=== PATIENT | female | born 1985 | race Caucasian/White ===

== ENCOUNTER 2023-03-21 21:09 | Outpatient (REF) | payer OTHER, SELFPAY ==
[2023-03-24 14:09] LABS: Age Gdln ACOG Testing Note (.); HPV Aptima Negative (Negative); IGP, Aptima HPV, rfx 16/18,45 Note (.)
== END 2023-03-21 21:10 | disposition home or self-care (01) ==
LOC: LAB 21:09
PROVIDERS: Visit Provider Obstetrics & Gynecology
DX: Z01.419 Encounter for gynecological examination (general) (routine) without abnormal findings (principal)
CPT/HCPCS: 87624; G0145

== ENCOUNTER 2024-03-26 19:40 | Outpatient (REF) | payer OTHER, BC, SELFPAY | END 2024-03-26 19:41 | disposition home or self-care (01) | LOC: LAB 19:40 | PROVIDERS: Visit Provider Obstetrics & Gynecology | DX: Z01.419 Encounter for gynecological examination (general) (routine) without abnormal findings (principal) | CPT/HCPCS: 87624; 88175 ==

== ENCOUNTER 2025-04-01 12:07 | Outpatient (REF) | payer OTHER, BC, SELFPAY ==
--- OUTSIDE RECORDS SUMMARY | 2025-04-01 09:00 | XMS_ITS | Encounter Summary ---
Author Organization [facility] Address [address] [place] [address] Care Team Providers Care Journeyman Power Plant Operator Name Role Phone Unavailable Primary Care Provider Unavailabl e Reason for Visit * ReasonCommentsWell Women Visit Encounter Details DateTypeDepartmentCare Team (Latest Contact Info)Usirdoomxbq73/27/2025 9:00 AM EDTOffice Visit [facility] [address] [place] [phone] Juan Sevilla DO [address] [place], [facility]11 Well woman exam with routine gynecological exam; Vaginal dryness; Irregular menstrual cycle; Severe menstrual cramps Social History Tobacco UseTypesPacks/DayYears UsedDateSmoking Tobacco: FormerCigarettesAlcohol UseStandard Drinks/WeekCommentsNever0 (1 standard drink = 0.6 oz pure alcohol) caffeine: 1-2 cups per dayCommentsUnknownSex and Gender InformationValue Date RecordedSex Assigned at BirthNot on fileLegal RihOmzvlg14/15/2023 8:00 PM EDTGender IdentityNot on fileSexual OrientationNot on filedocumented as of this encounter Last Filed Vital Signs Vital SignReadingTime TakenCommentsBlood Bnldnufj772/7604/01/2025 9:07 AM EDT Pulse--Temperature--Respiratory Rate--Oxygen Saturation--Inhaled Oxygen Concentration--Kpdqid91.1 kg (121 lb 8 oz)04/01/2025 9:07 AM EDTHeight--Body Mass Index23.7310 9:59 AM EDTdocumented in this encounter Plan of Treatment DateTypeDepartmentCare Team (Latest Contact Info)Hprvikhbgxr71/02/2026 4:00 PM ESTProcedure Visit [facility] [address] [address] Juan Sevilla, [address] [place] [address] NameTypePriorityAssociated DiagnosesOrder ScheduleTHIN PREP TIS PAP AND HR HPV DNAPathology and CytologyRoutine Well woman exam with routine gynecological exam Ordered: 04/01/2025documented as of this encounter Visit Diagnoses Diagnosis Well woman exam with routine gynecological exam Routine gynecological examination Vaginal dryness Postmenopausal atrophic vaginitis Irregular menstrual cycle Severe menstrual cramps documented in this encounter
--- OUTSIDE RECORDS SUMMARY | 2025-04-01 12:13 | XMS_ITS | Encounter Summary ---
Author Organization [facility] Address [id number] [address] [place] [address] Care Team Providers Care Project Control Manager Name Role Phone Dipti Ling APRN-COMBINATION WINDOW INSTALLER Primary Care Provide r Reason for Visit * ReasonCommentsMed Refill Encounter Details DateTypeDepartmentCare Team (Latest Contact Info)Vjcqrcfsajy92/25/2025Refill [facility] [address] [place] [address] Dipti Ling APRN-CNP [address] [place] [address] Social History Tobacco UseTypesPacks/DayYears UsedDateSmoking Tobacco: FormerCigarettes0.56 1999 - 2005Smokeless Tobacco: NeverAlcohol UseStandard Drinks/Week CommentsNo0 (1 standard drink = 0.6 oz pure alcohol)Social Connection and Isolation PanelAnswerDate RecordedIn a typical week, how many times do you talk on the phone with family, friends, or neighbors?More than three times a week 08/05/2020How often do you get together with friends or relatives?Once a week 08/05/2020How often do you attend orthodoxy or yazidi services?More than 4 times per year1Do you belong to any clubs or organizations such as orthodoxy groups, unions, fraternal or athletic groups, or school groups?Yes08/05/2020How often do you attend meetings of the clubs or organizations you belong to?1 to 4 times per year08/05/2020re you , , , , never , or living with a partner?Gooqbjf4508/05/2020UDIT-CAnswerDate RecordedQ1: How often do you have a drink containing alcohol?Never08/05/2020verage Number of DrinksNot on file08/05/2020Q3: How often do you have six or more drinks on one occasion?Never08/05/2020Overall Financial Resource Strain (CARDIA)AnswerDate RecordedHow hard is it for you to pay for the very basics like food, housing, medical care, and heating?Not hard at all02/26/2025PHQ-2AnswerDate RecordedTotal Ypvwa112Finheber [facility] [place] of Occupational Health - Occupational Stress QuestionnaireAnswerDate RecordedDo you feel stress - tense, restless, nervous, or anxious, or unable to sleep at night because yourmind is troubled all the time - these days?To some fzrith1208/05/2020xercise Vital SignAnswerDate Recorded On average, how many days per week do you engage in moderate to strenuous exercise (like a brisk walk)?1 day08/05/2020On average, how many minutes do you engage in exercise at this level?30 min08/05/2020RAPARE - TransportationAnswer Date RecordedIn the past 12 months, has lack of transportation kept you from medical appointments or from getting medications?No02/26/2025In the past 12 months, has lack of transportation kept you from meetings, work, or from getting things needed for daily living?No02/26/2025Housing InstabilityAnswerDate RecordedAre you worried or concerned that in the next two months you may not have stable housing that you own, rent or stay in as a part of a household?No 02/26/2025hildcareAnswerDate RecordedDo problems getting early childhood services coordinator make it difficult for you to work or study?No08/05/2020mploymentAnswerDate RecordedDo you need help finding a local career center and/or a training program?No 08/05/2020Hunger ScreeningAnswerDate RecordedWithin the past 12 months we worried whether our food would run out before we got money to buy more.Never True03/04/2025Within the past 12 months the food we bought just didn't last and we didn't have money to get more.Never True03/04/2025Purpose - LifeAnswerDate RecordedI have a purpose and direction in my life.Strongly Agree08/05/2020 EducationAnswerDate RecordedWhat is the highest level of school you have completed or the highest degree you have received?Associate degree: academic wbxsdpj7308/05/2020CommentsNoSex and Gender InformationValueDate Recorded Sex Assigned at XiiawFnrpmr22/29/2019 2:56 PM EDTLegal RlmMhpaol53/06/2015 11:21 AM EDTGender OnmnmnnpCyxjlf40/29/2019 2:56 PM EDTSexual OrientationStraight 11/01/2018 2:56 PM EDTdocumented as of this encounter Plan of Treatment DateTypeDepartmentCare Team (Latest Contact Info)Syahmqysfvo86/28/2025 8:30 AM EDTOffice Visit [facility] [address] [place] [phone] Dipti Ling APRN-COMBINATION WINDOW INSTALLER [address] [place] [address] 03/05/2026 8:00 AM EDTOffice Visit [facility] [address] [place] [phone] Dipti Ling APRN-COMBINATION WINDOW INSTALLER [address] [place] [address] documented as of this encounter Visit Diagnoses Not on filedocumented in this encounter Additional Health Concerns AssessmentNoted TimePHQ-9 Depression Total Score: 9:00 AM EDTA Body Mass Index follow-up plan has been documented for the utfmsls9203/04/2025 9:26 AM EDTdocumented as of this encounter Care Teams Team MemberRelationshipSpecialtyStart DateEnd Date Dipti Ling APRN-CNP [address] [place] [address] PCP - GeneralFamily Medicine08/17/18documented as of this encounter
--- OUTSIDE RECORDS SUMMARY | 2025-04-01 12:13 | XMS_ITS | Clinical Summary ---
Author Organization [facility] Address [address] [place] [address] Phone Care Team Providers Care Welder Fitter Name Role Phone Dipti Ling NP Primary Care Provider Social History Tobacco UseTypesPacks/DayYears UsedDateSmoking Tobacco: Never Assessed CommentsUnknownSex and Gender InformationValueDate RecordedSex Assigned at Vqeefc4802/12/2020 8:49 AM CDTLegal GxqRxaixm90/05/2019 11:50 AM CDTGender DccnbjcfUgpkkk51/08/2020 8:49 AM CDTSexual KsboggpcqvaFapewlgm57/08/2020 8:49 AM CDT Last Filed Vital Signs Vital SignReadingTime TakenCommentsBlood Ybvoazqg023/7004 7:33 AM EDT Pulse--Temperature--Respiratory Rate--Oxygen Bobifydcfw483%09/24/2015 2:44 PM CDTInhaled Oxygen Concentration--Bwywca68.9 kg (121 lb)10/04/2023 7:33 AM EDT Qfquhm776.9 cm (5' 1 )10/04/2023 7:33 AM EDTBody Mass Index22.8610/04/2023 7:33 AM EDT Plan of Treatment Health MaintenanceDue DateLast DoneCommentsDTaP,Tdap,and Td Vaccines (1 - Tdap) 2003Hepatitis B Vaccines (1 of 3 - 19+ 3-dose series)2003COVID-19 Vaccine (1 - season)2025Influenza Vaccine (#1)/02/2021 Lipid Disorders Rrnrkpdlr09, 02/10/2023, 02/16/2022, Additional history existsHIB VaccinesAged OutNo longer eligible based on patient's age to complete this topicHepatitis A VaccinesAged OutNo longer eligible based on patient's age to complete this topicMeningococcal B Vaccine Aged OutNo longer eligible based on patient's age to complete this topic Meningococcal VaccineAged OutNo longer eligible based on patient's age to complete this topicPneumococcal Vaccine Pediatrics (0-5 Yrs) and At-Risk Patients (6-49Yrs)Aged OutNo longer eligible based on patient's age to complete this topic Procedures Procedure NamePriorityDate/TimeAssociated DiagnosisCommentsMPWR PANEL - BIOMETRIC JELOMicfklq41/30/2024 7:25 AM EDT Encounter for insurance examination from Last 3 Months or Most Recently Relevant to Health Maintenance Results * (ABNORMAL) MPWR panel - biometric only (10/04/2023 7:25 AM EDT)ComponentValue Ref RangeTest MethodAnalysis TimePerformed AtPathologist SignatureBASOABSOLMAN 290 - 200 cells/uLLAB [facility] (CLIA [id number])ABS THF6864 - 500 cells/uLLAB [facility] (CLIA [id number])LYMPHSABSMAN2,964472 - 3,900 cells/uLLAB [facility] (CLIA [id number])OZXZDPGSVKQT877922 - 950 cells/uL [facility] (CLIA [id number])NEUTRO COUNT2,3901,500 - 7,800 cells/uL [facility] (CLIA [id number])ALBUMIN4.83.6 - 5.1 g/dLLAB [facility] (CLIA [id number])A/G RATIO1.91.0 - 2.5 (calc)[facility] (CLIA [id number])ALK BOHF4460 - 125 U/LL[facility] (CLIA [id number])SGPT (ALT)146 - 29 U/LL[facility] (CLIA [id number])SGOT (AST)1610 - 30 U/L [facility] (CLIA [id number])BASOPHIL %0.6%[facility] (CLIA [id number])BILI DIRECT0.1< OR = 0.2 mg/dLLAB [facility] (CLIA [id number]) BILIRUBIN, SERUM, INDIRECT0.40.2 - 1.2 mg/dL (calc)[facility] (CLIA [id number])BILI TOTAL0.50.2 - 1.2 mg/dLLAB [facility] (CLIA [id number]) BUN/CREATSEE NOTE:6 - 22 (calc)[facility] (CLIA [id number])Comment: Not Reported: BUN and Creatinine are within ?? reference range. CALCIUM9.68.6 - 10.2 mg/dLLAB [facility] (CLIA [id number])MV14528 - 32 mmol/LLAB [facility] (CLIA [id number])WIVNVUET22996 - 110 mmol/LLAB [facility] (CLIA [id number])CHOL/HDL2.7<5.0 (calc)[facility] (CLIA [id number])WKXEFOMIOLI734<200 mg/dLLAB [facility] (CLIA [id number])VLDL17 <30 mg/dL (calc)[facility] (CLIA [id number])CREATININE0.690.50 - 0.97 mg/dLLAB [facility] (CLIA [id number])EOSINOPHIL %1.0%[facility] (CLIA [id number])BWU737 - 50 U/LLAB [facility] (CLIA [id number])GLOBULIN2.5 1.9 - 3.7 g/dL (calc)[facility] (CLIA [id number])QOTXPDF137(H)65 - 99 mg/dLLAB [facility] (CLIA [id number])Comment: Fasting reference interval For someone without known diabetes, a glucose value between 100 and 125 mg/dL is consistent with prediabetes and should be confirmed with a follow-up test. HDL67> OR = 50 mg/dLLAB [facility] (CLIA [id number])HCT40.835.0 - 45.0 %[facility] (CLIA [id number])HGB13.411.7 - 15.5 g/dLLAB [facility] (CLIA [id number])YRPF0827 - 190 mcg/dLLAB [facility] (CLIA [id number]) LACTATE WWNJCIWSPECMU166902 - 200 U/LL[facility] (CLIA [id number])LDL (CALCULATED)98mg/dL (calc)[facility] (CLIA [id number])Comment: Reference range: <100 Desirable range <100 mg/dL for primary prevention; <70 mg/dL for patients with CHD or diabetic patients with > or = 2 CHD risk factors. LDL-C is now calculated using the Jorge-Morales calculation, which is a validated novel method providing better accuracy than the Friedewald equation in the estimation of LDL-C. Jorge SS et al. NIKITA. 2013;310(19): 6442-8327 (http://education.LiquidPiston/faq/RXD010) LYMPHS %43.4%[facility] (CLIA [id number])MCH29.627.0 - 33.0 pgLAB [facility] (CLIA [id number])MCHC RBC32.832.0 - 36.0 g/dLLAB [facility] (CLIA [id number])MCV90.180.0 - 100.0 fLLAB [facility] (CLIA [id number])MONOCYTE % 5.2%[facility] (CLIA [id number])MPV9.37.5 - 12.5 fLLAB [facility] (CLIA [id number])XYCAZTPHTTO87.8%[facility] (CLIA [id number]) CHOLESTEROL, NON-HDL, GZSDN569<130 mg/dL (calc)[facility] (CLIA [id number])Comment: For patients with diabetes plus 1 major ASCVD risk factor, treating to a non-HDL-C goal of <100 mg/dL (LDL-C of <70 mg/dL) is considered a therapeutic option. PHOS P/S4.12.5 - 4.5 mg/dLLAB [facility] (CLIA [id number])LZTVAIQIE509127 - 400 Thousand/uLLAB [facility] (CLIA [id number])POTASSIUM3.73.5 - 5.3 mmol/L [facility] (CLIA [id number])PROTEIN, TOT7.36.1 - 8.1 g/dLLAB [facility] (CLIA [id number])RDW12.811.0 - 15.0 %[facility] (CLIA [id number]) RED BLOOD CELL4.533.80 - 5.10 Million/uLLAB [facility] (CLIA [id number]) XTYNRU914471 - 146 mmol/LLAB [facility] (CLIA [id number])ENEGEPJYYKHX63<150 mg/dLLAB [facility] (CLIA [id number])TRY891 - 25 mg/dLLAB [facility] (CLIA [id number])URIC ACID4.12.5 - 7.0 mg/dLLAB [facility] (CLIA [id number])Comment: Therapeutic target for gout patients: <6.0 mg/dL Fasting? YES WBC COUNT4.83.8 - 10.8 Thousand/uLLAB [facility] (CLIA [id number])KMUQ768> OR = 60 mL/min/1.59k6KBL [facility] (CLIA [id number])Specimen (Source) Anatomical Location / LateralityCollection Method / VolumeCollection Time Received Time10/04/2023 7:25 AM EDT Narrative Authorizing ProviderResult TypeResult StatusRuWashington Rural Health Collaborative BLOOD ORDERABLES Edited Result - FinalPerforming OrganizationAddressCity/State/ZIP CodePhone Number LAB [facility] (CLIA [id number]) [address] [facility] [place] [address], [place] from Last 3 Months or Most Recently Relevant to Health Maintenance Care Teams Team MemberRelationshipSpecialtyStart DateEnd Date Dipti Ling NP PCP - GeneralPrimary Care02/16/22
--- OUTSIDE RECORDS SUMMARY | 2025-04-01 12:13 | XMS_ITS | Encounter Summary ---
Author Organization [facility] tem Address [id number] [address] [place] [address] Care Team Providers Care Braddisher Name Role Phone Dipti Ling APRN-DAG COATER Primary Care Provide r Reason for Visit * ReasonCommentsMed Change Request Encounter Details DateTypeDepartmentCare Team (Latest Contact Info)Akntylsmoee74/23/2025Refill [facility] [address] [place] [address] Dipti Ling APRN-CNP [address] [place] [address] Social History Tobacco UseTypesPacks/DayYears UsedDateSmoking [...] a week 08/05/2020How often do you attend presybeterian or gnosticism services?More than 4 times per year1Do you belong to any clubs or organizations such as presybeterian groups, unions, fraternal or athletic groups, or school groups?Yes08/05/2020How often do you attend meetings of the clubs or organizations you belong to?1 to 4 times per year08/05/2020re you , , , , never , or living with a partner?Kvqxxkb5708/05/2020UDIT-CAnswerDate RecordedQ1: How often do you have a drink containing alcohol?Never08/05/2020verage Number of DrinksNot on file08/05/2020Q3: How often do you have six or more drinks on one occasion?Never08/05/2020Overall Financial Resource Strain (CARDIA)AnswerDate RecordedHow hard is it for you to pay for the very basics like food, housing, medical care, and heating?Not hard at all02/26/2025PHQ-2AnswerDate RecordedTotal Mvdqg481Finsteward health care system [place] of Occupational Health - Occupational Stress QuestionnaireAnswerDate RecordedDo you feel stress - tense, restless, nervous, or anxious, or unable to sleep at night because yourmind is troubled all the time - these days?To some esufny9808/05/2020xercise Vital SignAnswerDate Recorded On average, how many [...] of a household?No 02/26/2025hildcareAnswerDate RecordedDo problems getting childcare attendant make it difficult for you to work [...] highest degree you have received?Associate degree: academic dgctsjr3408/05/2020CommentsNoSex and Gender InformationValueDate Recorded Sex Assigned at VshdhClhozn92/29/2019 2:56 PM EDTLegal QxiEnctbh79/06/2015 11:21 AM EDTGender InlmcxfjJiuoeh62/29/2019 2:56 PM EDTSexual OrientationStraight 11/01/2018 2:56 PM EDTdocumented as of this encounter Plan of Treatment DateTypeDepartmentCare Team (Latest Contact Info)Dannxkdkbdx49/28/2025 8:30 AM EDTOffice Visit [facility] [address] [place] [phone] Dipti Ling APRN-DAG COATER [address] [place] [address] 03/05/2026 8:00 AM EDTOffice Visit [facility] [address] [place] [phone] Dipti Ling APRN-DAG COATER [address] [place] [address] documented as of this encounter Visit Diagnoses Not on filedocumented in this encounter Additional Health Concerns AssessmentNoted TimePHQ-9 Depression Total Score: 9:00 AM EDTA Body Mass Index follow-up plan has been documented for the otkpmvy7003/04/2025 9:26 AM EDTdocumented as of this encounter Care Teams Team MemberRelationshipSpecialtyStart DateEnd Date Dipti Ling APRN-CNP [address] [place] [address] PCP - GeneralFamily Medicine08/17/18documented as of this encounter
--- OUTSIDE RECORDS SUMMARY | 2025-04-01 12:13 | XMS_ITS | Clinical Summary ---
Author Organization [facility] Address [address] [place] [address], [address] [place] [id number] Care Team Providers Care National Sales Representative Name Role Phone Unavailable Primary Care Provider Unavailabl e Social History Tobacco UseTypesPacks/DayYears UsedDateSmoking Tobacco: Never Assessed CommentsUnknownSex and Gender InformationValueDate RecordedSex Assigned at Not on fileLegal WpjKcfqap66/10/2013 3:22 PM ESTGender IdentityNot on fileSexual OrientationNot on file Plan of Treatment Not on file
--- OUTSIDE RECORDS SUMMARY | 2025-04-01 12:13 | XMS_ITS | Encounter Summary ---
Author Organization [facility] Address [address] [facility] [place] [address] Care Team Providers Care Repairer Controller Tester Name Role Phone Unavailable Primary Care Provider Unavailabl e Encounter Details DateTypeDepartmentCare Team (Latest Contact Info)Gjwuwifdrwf62/27/2025amboo flowsheet [facility] [address] [place] [address] [place] [address] Juan Sevilla DO [address] [place] [address] Dr [place] [place], [place] [address] Social History Tobacco UseTypesPacks/DayYears UsedDateSmoking Tobacco: FormerCigarettesAlcohol UseStandard Drinks/WeekCommentsNever0 (1 standard drink = 0.6 oz pure alcohol) caffeine: 1-2 cups per dayCommentsUnknownSex and Gender InformationValue Date RecordedSex Assigned at BirthNot on fileLegal PgaNssppa51/15/2023 8:00 PM EDTGender IdentityNot on fileSexual OrientationNot on filedocumented as of this encounter Plan of Treatment DateTypeDepartmentCare Team (Latest Contact Info)Bnekdkhgodr93/02/2026 4:00 PM ESTProcedure Visit [facility] [address] [place] [address] Juan Sevilla DO [address] [place] [address] Dr Ry[address] Lucia, [facility] documented as of this encounter Visit Diagnoses Not on filedocumented in this encounter
--- OUTSIDE RECORDS SUMMARY | 2025-04-01 12:13 | XMS_ITS | Clinical Summary ---
Author Organization [facility] tem Address [id number] [address] [place] [address] Care Team Providers Care Housekeeping Room Attendant Name Role Phone Dipti Ling Primary Care Provide r Allergies No known active allergies Medications * This document contains information received from the source organization and may not represent a complete record from that organization. MedicationSigDispense QuantityRefillsLast FilledStart DateEnd DateStatus sertraline (ZOLOFT) 50 mg tablet TAKE 1 TABLET BY MOUTH EVERY DAY 90 tablet 5Active sertraline (ZOLOFT) 25 mg tablet Take 1 tablet (25 mg total) by mouth in the morning. 30 tablet 5Active azithromycin (ZITHROMAX) 250 mg tablet Take 2 tablets the first day, then 1 tablet daily for 4 days. 6 tablet 5003/02/2025Expired Active Problems ProblemNoted DateDiagnosed DatePosttraumatic stress /09/2017 Generalized anxiety xrijphfj11/09/2017Major depressive disorder, recurrent episode, mild01/12/2017 Encounters DateTypeDepartmentCare KmuqUxdqbhsoriz19/25/2025[facility]ill [facility] [address] [place] [address] Dipti Ling APRN-CNP 03/28/2025Refill [facility] [address] [place] [address] Dipti Ling APRN-CNP 03/04/2025 9:00 AM EDTOffice Visit [facility] [address] [place] [phone] Dipti Ling APRN-CNP Wellness examination (Primary Dx); Major depressive disorder, recurrent episode, mild; Generalized anxiety disorder; Posttraumatic stress sxjgqlxy57/28/9775Veriqy28/23/2025 1:00 PM EDTOffice Visit [facility] [address] [place] [phone] Dipti Ling APRN-CNP Acute sinusitis, recurrence not specified, unspecified location (Primary Dx) 02/26/20253447Tfsdet99/25/2025 10:00 AM EDTOffice Visit [facility] [place] [phone] Dipti Ling APRN-CNP Acute sinusitis, recurrence not specified, unspecified location (Primary Dx) 01/28/20257008Yxcegy81/16/2025[facility] [address] [place], [place] [address] [phone] Dipti Ling APRN-CNP 01/02/2025 2:30 PM EDTOffice Visit [facility] [address] [place], [place] [address] [place] [phone] Dipti Ling APRN-CNP Herpes zoster without complication (Primary Dx)01/02/2025Travelfrom Last 3 Months Immunizations ImmunizationAdministration DatesNext DueInfluenza, Injectable, quadrivalent (PF) 08/12/2020 Family History Medical HistoryRelationNameCommentsAnxiety disorderBrotherBrandonBipolar disorderBrotherBrandonDepressionBrotherBrandonAlcohol abuseFatherMikeAnxiety disorderFatherMikeDepressionFatherMikeDrug abuseFatherMikeHeart diseaseFather MikeCervical cancerMaternal AuntCarolOvarian cancerMaternal AuntCarolMy mother is adopted. We dont know much about health historyAnxiety disorderMotherSue DepressionMotherSueHypertensionMotherSueHeart diseasePaternal GrandfatherNorbert Breast cancerNeg HxRelationNameStatusCommentsBrotherBrandonFatherMikeAlive Maternal AuntCarolDeceasedMotherSueAlivePaternal GrandfatherNorbertDeceased Social History Tobacco UseTypesPacks/DayYears UsedDateSmoking Tobacco: FormerCigarettes0.56 1999 - 2005Smokeless Tobacco: Never Tobacco Cessation:Counseling Given: Not Answered Alcohol UseStandard Drinks/WeekCommentsNo0 (1 standard drink = 0.6 oz pure alcohol)Social Connection and Isolation PanelAnswerDate RecordedIn a typical week, how many times do you talk on the phone with family, friends, or neighbors?More than three times a week08/05/2020How often do you get together with friends or relatives?Once a week08/05/2020How often do you attend sikh or cheondoism services?More than 4 times per year08/05/2020o you belong to any clubs or organizations such as sikh groups, unions, fraternal or athletic clara ups, or school groups?Yes08/05/2020How often do you attend meetings of the clubs or organizations you belong to?1 to 4 times per year08/05/2020re you , , , , never , or living with a partner? 08/05/2020UDIT-CAnswerDate RecordedQ1: How often do you have a drink containing alcohol?Never08/05/2020verage Number of DrinksNot on file08/05/2020Q3: How often do you have six or more drinks on one occasion?Never08/05/2020Overall Financial Resource Strain (CARDIA)AnswerDate RecordedHow hard is it for you to pay for the very basics like food, housing, medical care, and heating?Not hard at all02/26/2025PHQ-2AnswerDate RecordedTotal Ylzxw027Finlifepoint hospitals [place] [facility] Occupational [facility] - Occupational Stress QuestionnaireAnswerDate RecordedDo you feel stress - tense, restless, nervous, or anxious, or unable to sleep at night because yourmind is troubled all the time - these days?To some extent 08/05/2020xercise Vital SignAnswerDate RecordedOn average, how many days per week do you engage in moderate to strenuous exercise (like a brisk walk)?1 day 08/05/2020On average, how many minutes do you engage in exercise at this level? 30 min08/05/2020RAPARE - TransportationAnswerDate RecordedIn the past 12 months, has lack [...] stay in as a part of a household?No02/26/2025hildcareAnswer Date RecordedDo problems getting child and family services specialist make it difficult for you to work or study?No08/05/2020mploymentAnswerDate RecordedDo you need help finding a local career center and/or a training program?No08/05/2020Hunger ScreeningAnswerDate RecordedWithin the past 12 months we worried whether our food would run out before we got money to buy more.Never True03/04/2025Within the past 12 months the food we bought just didn't last and we didn't have money to get more.Never True03/04/2025Purpose - LifeAnswerDate RecordedI have a purpose and direction in my life.Strongly Agree08/05/2020ducationAnswerDate RecordedWhat is the highest level of school you have completed or the highest degree you have received? Associate degree: academic ocjoddo0408/05/2020CommentsNoSex and Gender InformationValueDate RecordedSex Assigned at TpiqgHkamia58/29/2019 2:56 PM EDT Legal LgcJgcyzs44/06/2015 11:21 AM EDTGender QfmqrysnTixxdx41/29/2019 2:56 PM EDTSexual BvqpkbybwktIfjvkgre30/29/2019 2:56 PM EDT Last Filed Vital Signs Vital SignReadingTime TakenCommentsBlood Bnzqvsps674/6809 9:03 AM EDT Jmfnt627303/04/2025 9:03 AM SEPWsxdzcrwqit29.2 ??C (97.2 ??F)03/04/2025 9:03 AM EDTRespiratory Kpgt768603/04/2025 9:03 AM EDTOxygen Vvriwwxlcf45%03/04/2025 9:03 AM EDTInhaled Oxygen Concentration--Izsaya31.8 kg (123 lb)03/04/2025 9:03 AM EDT Qctlea666.4 cm (5')03/04/2025 9:03 AM EDTBody Mass Index24.02003/04/2025 9:03 AM EDT Plan of Treatment DateTypeDepartmentCare Team (Latest Contact Info)Zigchruubuq69/28/2025 8:30 AM EDTOffice Visit [facility] [address] [place] [phone] Dipti Ling, [employer]-DRUM DRIER OPERATOR [address] [place] [address] 03/05/2026 8:00 AM EDTOffice Visit [facility] [address] [place] [phone] Dipti Ling, [employer]-DRUM DRIER OPERATOR [address] [place] [address] Health MaintenanceDue DateLast DoneCommentsDTaP,Tdap and Td Vaccines (1 - Tdap) 2003Influenza Vwaukbs36, 03/07/2023, 03/24/2022, Additional history existsAdult BMI Lsojvpzhe94/Depression Qplafhfhx22Tobacco Gcvblezpy53Pap Smear Medical Devices Not on file Insurance * Guarantor: Maria Antonia Fitzpatrick TypeRelation to PatientDate of BirthPhone Billing AddressPersonal/VhgtczIgia02/11/1986 [address] [address] Care Teams Team MemberRelationshipSpecialtyStart DateEnd Date Dipti Ling APRN-DRUM DRIER OPERATOR [address] [place] [address] PCP - GeneralFamily Medicine08/17/18
--- OUTSIDE RECORDS SUMMARY | 2025-04-01 12:13 | XMS_ITS | Encounter Summary ---
Author Organization [facility] Address [address] [place] [address] Care Team Providers Care Brim Plater Name Role Phone Unavailable Primary Care Provider Unavailabl e Encounter Details DateTypeDepartmentCare Team (Latest Contact Info)Hxtbogckplu86/20/2025Travel Social History Tobacco UseTypesPacks/DayYears UsedDateSmoking Tobacco: FormerCigarettesAlcohol UseStandard Drinks/WeekCommentsNever0 (1 standard drink = 0.6 oz pure alcohol) caffeine: 1-2 cups per dayCommentsUnknownSex and Gender InformationValue Date RecordedSex Assigned at BirthNot on fileLegal LyrIsvgqm89/15/2023 8:00 PM EDTGender IdentityNot on fileSexual OrientationNot on filedocumented as of this encounter Plan of Treatment DateTypeDepartmentCare Team (Latest Contact Info)Bfvvrzyqqpr47/02/2026 4:00 PM ESTProcedure Visit [facility] [address] [place] [phone] Juan Sevilla DO [address] [place], [facility]11 documented as of this encounter Visit Diagnoses Not on filedocumented in this encounter
--- OUTSIDE RECORDS SUMMARY | 2025-04-01 12:13 | XMS_ITS | Clinical Summary ---
Author Organization [facility] Address [address] [place] [address] Care Team Providers Care Form Coverer Name Role Phone Unavailable Primary Care Provider Unavailabl e Allergies Active AllergyReactionsCriticalityNoted DateCommentsApple (Diagnostic)RashLow 03/17/2023ee ZqthxVzjwTno72/12/2023 Medications MedicationSigDispense QuantityRefillsLast FilledStart DateEnd DateStatus sertraline (Zoloft) 50 MG tablet Take 1 tablet by mouth in the morning.01/24/2023ctive Encounters DateTypeDepartmentCare ZexkJqnyyuzvuxm73/27/2025 9:00 AM EDTOffice Visit [facility] [address] [place] [phone] Juan Sevilla, Well woman exam with routine gynecological exam; Vaginal dryness; Irregular menstrual cycle; Severe menstrual ylpegf53amboo flowsheet [facility] [address] [place] [address] Juan Sevilla DO 03/25/2025Travelfrom Last 3 Months Family History Medical HistoryRelationNameCommentsCancerBrotherHypertensionBrotherHeart attack FatherPossible diabetesMotherRelationNameStatusCommentsBrotherFatherAliveMother Alive Social History Tobacco UseTypesPacks/DayYears UsedDateSmoking Tobacco: FormerCigarettes Tobacco Cessation:Counseling Given: Not Answered Alcohol UseStandard Drinks/WeekCommentsNever0 (1 standard drink = 0.6 oz pure alcohol)caffeine: 1-2 cups per dayCommentsUnknownSex and Gender InformationValueDate RecordedSex Assigned at BirthNot on fileLegal SexFemale 08/18/2022 8:00 PM EDTGender IdentityNot on fileSexual OrientationNot on file Last Filed Vital Signs Vital SignReadingTime TakenCommentsBlood Utttdifr165/7604/01/2025 9:07 AM EDT Pulse--Temperature--Respiratory Rate--Oxygen Saturation--Inhaled Oxygen Concentration--Pukdzx46.1 kg (121 lb 8 oz)04/01/2025 9:07 AM VDVJybgbv712.4 cm (5')03/21/2023 9:59 AM EDTBody Mass Index23.7303/21/2023 9:59 AM EDT Plan of Treatment DateTypeDepartmentCare Team (Latest Contact Info)Nbqxgoadjti97/02/2026 4:00 PM ESTProcedure Visit [facility] [address] [place] [address] Juan Sevilla DO [address] [place] [place], [place] [phone] Insurance
--- OUTSIDE RECORDS SUMMARY | 2025-04-01 12:53 | XMS_ITS | CCD ---
Author Organization [facility] Care Team Providers Care Pricing Supervisor Name Role Phone Gatito Smiley Primary Care Physician Unavail able Gatito Smiley Unavailable Unavailable DR RICARDO SEVILLA Admitting Unavailable ROEL, DR SILVA Attending Unavailable ROEL, DR SILVA Consulting Unavailable Unavailable Primary Care Provider Unavailabl RICARDO Sosa Attending Unavailable Schlachter LINK WIRE FABRIC MACHINE TENDER-ROD POINTER, Rosmery Primary Care Provide r ROSMERY LING Referring Unavailable SCHLACHTER, ROSMERY Primary Care Unavailable Schlachter LINK WIRE FABRIC MACHINE TENDER-ROD POINTER, Rosmery Primary Care Provide r ROSMERY LING Attending Unavailable SCHLACHTER, ROSMERY Referring Unavailable SCHLACHTER, ROSMERY Primary Care Unavailable SCHLACHTER, ROSMERY Attending Unavailable SCHLACHTER, ROSMERY Referring Unavailable SCHLACHTER, ROSMERY Primary Care Unavailable SCHLACHTER, ROSMERY Attending Unavailable SCHLACHTER, ROSMERY Referring Unavailable SCHLACHTER, ROSMERY Primary Care Unavailable SCHLACHTER, ROSMERY Attending Unavailable SCHLACHTER, ROSMERY Referring Unavailable SCHLACHTER, ROSMERY Primary Care Unavailable SCHLACHTER, ROSMERY Attending Unavailable SCHLACHTER, ROSMERY Referring Unavailable SCHLACHTER, ROSMERY Primary Care Unavailable Allergies Allergy ClassificationReported Allergen(s)Allergy TypeDate of OnsetReaction(s) Facility (5 sources)Apple extractDrug Epaprsg18-58-1275SfknPDDY [facility] Work Phone: (5 sources)Honey bee venomAllergy to efoevnclh18-68-5143VlusVWVQ [facility] Medications Current Medications MedicationDrug Class(es)DatesSig (Normalized)Sig (Original)azithromycin 250 mg oral tablet (5 sources)Macrolide AntimicrobialStart: 02-26-2025 End: 67-88-2293euaeazyeissu (ZITHROMAX) 250 mg tablet Take 2 tablets the first day, then 1 tablet daily for 4 days. 6 tablet 02/26/2025 03/02/2025 ActiveStart: 01-28-2025 End: 23-33-2582qposorbiupbq (ZITHROMAX) 250 mg tablet Take 2 tablets the first day, then 1 tablet daily for 4 days. 6 tablet 01/28/2025 02/01/2025 ActiveStart: 07-12-2024 End: 84-06-7580lpyi 1 tablet by mouth in the morning, then take 2 tablets by mouth once daily, then take 1 tablet by mouth once dailyazithromycin (ZITHROMAX) 250 mg tablet Take 1 tablet (250 mg total) by mouth in the morning for 5 days. Take 2 tablets the first day, then 1 tablet daily for 4 days.. 6 tablet 07/12/2024 07/17/2024 ActiveStart: 10-12-2023 End: 71-37-6320qegz 1 tablet by mouth in the morning, then take 2 tablets by mouth once daily, then take 1 tablet by mouth once dailyazithromycin (ZITHROMAX) 250 mg tablet Take 1 tablet (250 mg total) by mouth in the morning for 5 days. Take 2 tablets the first day, then 1 tablet daily for 4 days.. 6 tablet 10/12/2023 10/17/2023 Activesertraline 25 mg oral tablet (20 sources)Serotonin Reuptake InhibitorStart: 93-65-4827vdep 1 tablet by mouth in the morningsertraline (ZOLOFT) 25 mg tablet Take 1 tablet (25 mg total) by mouth in the morning. 30 tablet 03/04/2025 ActiveStart: 01-24-2023 End: 43-48-1336xnap 1 tablet by mouth in the morningsertraline (Zoloft) 50 MG tablet Take 1 tablet by mouth in the morning. 01/24/2023 Activetake 1 tablet by mouth once dailyZoloft 25 mg oral tablet take 1 tablet (25 mg) by oral route once dailyvalACYclovir 1000 mg oral tablet (1 source)Herpesvirus Nucleoside Analog DNA Polymerase Inhibitor, Herpes Simplex Virus Nucleoside Analog DNA Polymerase Inhibitor, Herpes Zoster Virus Nucleoside Analog DNA Polymerase InhibitorStart: 01-02-2025 End: 79-23-4669brtb 1 tablet by mouth in the morning, then take 1 tablet by mouth at bedtimevalACYclovir (VALTREX) 1000 mg tablet Take 1 tablet (1,000 mg total) by mouth in the morning and 1 tablet (1,000 mg total) before bedtime. Do all this for 7 days. 14 tablet 01/02/2025 01/09/2025 Active Completed/Discontinued Medications MedicationDrug Class(es)DatesSig (Normalized)Sig (Original)acetaminophen 500 mg oral tablet (3 sources)Start: 11-09-2022 End: 27-44-6674icnt 1 tablet by mouth every six hoursacetaminophen (TYLENOL EXTRA STRENGTH) 500 mg tablet Take 1 tablet (500 mg total) by mouth every 6 ( six) hours. 30 tablet 0 11/09/2022 08/24/2023 Discontinuedibuprofen 600 mg oral tablet (3 sources)Nonsteroidal Anti-inflammatory DrugStart: 11-09-2022 End: 39-36-0868jcwa 1 tablet by mouth every eight hoursibuprofen (MOTRIN) 600 mg tablet Take 1 tablet (600 mg total) by mouth every 8 (eight) hours. 45 tablet 1 11/09/2022 08/24/2023 Discontinued Problems Active Problems Problem ClassificationProblemDateDocumented DateEpisodic/ChronicAnxiety disorders (20 sources)Posttraumatic stress disorder; Translations: [Post-traumatic stress disorder, unspecified]Onset: 750947-12-4892XoyijnsJskoalwii hypertension (1 source)Essential (primary) hypertensionChronicImmunizations and screening for infectious disease (1 source)Encounter for screening for human papillomavirus (HPV); Translations: [ENC SCREENING HUMAN PAPILLOMAVIRUS]Onset: 27-89-4978HmnhyybqGgyu disorders (18 sources)Recurrent major depressive episodes, mild ; Translations: [Major depressive disorder, recurrent, mild]Onset: 149047-87-7339YtwidnwAkawmrirf of unspecified nature or uncertain behavior (2 sources)Neoplasm of uncertain behavior of skinOnset: 18-74-3521BuolbzpoVhpag lower respiratory disease (1 source)CoughOnset: 68-12-8968EgxvknkeDaouz screening for suspected conditions (not mental disorders or infectious disease) (7 sources)Encounter for screening for malignant neoplasm of cervix; Translations: [Patient encounter status]Onset: 51-15-9962GqnsouvmEfvrz skin disorders (2 sources)Night sweats; Translations: [Generalized hyperhidrosis]03-26-2024 EpisodicUnclassified (1 source)Annual ExamOnset: 04-99-4677Vpmmlbiafcyy (1 source)RashOnset: 50-88-6740Fizgynooemug (1 source)EaracheOnset: 34-00-6838Fjrbt infection (3 sources)Disease caused by 2019-nCoV; Translations: [COVID-19]Onset: 400905-54-8495Jchqptbr Past or Other Problems Problem ClassificationProblemDateDocumented DateEpisodic/ChronicMood disorders (13 sources)Mood disordersOnset: 07-12-2024 Resolved: Other and unspecified benign neoplasm (1 source)Melanocytic nevi, unspecifiedOnset: 38-27-1897KnjpskliNcxnt upper respiratory disease (1 source)Pain in throatOnset: 32-02-6684KszgipwhVflyw upper respiratory disease (1 source)Nasal congestionOnset: 63-53-9533DmcizzpgTqxwt upper respiratory infections (5 sources)Acute sinusitis; Translations: [Acute sinusitis, unspecified]Onset: 433379-10-2409FsyhhrssAtvjykzevnhw (13 sources)Onset: 07-12-2024 Resolved: Results Test NameValueInterpretationReference RangeFacilityGlucose Glucometer (BldC) [Mass/Vol]on 45-18-6230koibx glucose (non-fasting)Invalid Interpretation Code <140AstemDuke HealthGlucose [Mass/Vol]108 mg/dLInvalid Interpretation Skgg88-80WwotvyDuke Healthlipid panel, bloodon 34-78-6889Ikytxiheuhp [Mass/Vol]181 mg/dLInvalid Interpretation Code<200Astemo [facility] Health CenterCholesterol in HDL [Mass/Vol]57 mg/dLInvalid Interpretation Code>50Astemo [facility] Health CenterCholesterol in LDL [Mass/Vol]104 mg/dL Invalid Interpretation Code<100AstUNC Health RockinghamTC/HDL ratio3.2 Invalid Interpretation Code<4.5Astemo Santa Ana Health CenterTriglyceride [Mass/Vol]101 mg/dLInvalid Interpretation Code<150AstemDuke Health MAMM SCREENING BILATERAL W CADon 45-26-3612WWFN SCREENING BILATERAL W CADMAMM SCREENING BILATERAL W CAD MARIA ANTONIA PALMER 1985 [id number] EXAM: MAMM SCREENING BILATERAL W CAD, 09/13/2024 9:18 AM CLINICAL INDICATIONS: Screening, Encounter for mammogram to establish baseline mammogram COMPARISON: No prior studies currently available for comparison. TECHNIQUE: Bilateral digital tomosynthesis MLO and CC views of the breasts were obtained, with creation of synthetic 2D views. Computer aided detection was utilized. FINDINGS: The breasts are extremely dense, which lowers the sensitivity of mammography. There are no suspicious masses, calcifications, or areas of architectural distortion. IMPRESSION: No mammographic evidence of malignancy. BI-RADS: BI-RADS 1 - Negative RECOMMENDATION: Routine screening mammogram in 1 year. RISK ASSESSMENT: TC Lifetime risk: 16%. The patient's reported personal and family medical history was used calculate their Tyrer-Cuzick lifetime risk of malignancy. Scores less than 20% are not considered high risk per ACR guidelines and patient should continue with the above recommendation. Additionally, this patient's reported personal and/or family history of cancer indicates they may benefit from a genetic counseling consultation and possible genetic testing. If patient has not already completed this evaluation, please consider placing a referral to [facility] via Squrl or . For questions regarding this, please call [phone]. The patient was offered information on genetic counseling at the time of exam. Finalized by Adin Sanabria MD on 09/13/2024 2:56 PM 1 d MAMM 1 YRNormalProMedica Community Hospital Of San BernardinoIGP,APTIMA HPV,AGE GDLNon 79-73-6696OOJ GDLN ACOG TESTINGNote.NOMS HealthcareComment on above:TESTS RESULT FLAG UNITS REF RANGE LAB Clinician Provided Cytology Information Source.............Cervix;Endocervix No. of containers..01 ThinPrep Vial Age Emmanuel ZAMUDIO Daysi... 3065 FLAG LEGEND: L-Low Normal,H-High Normal,LL-Alert Low,HH-Alert High <-Panic Low,>-Panic High,A-Abnormal,AA-Critical Abnormal Performed at: 01 =G [address] [place] [address] Denice Greco MD, HPV APTIMANegativeNegativeNOMS HealthcareComment on above:This nucleic acid amplification test detects fourteen high- risk HPV types (16,18,31,33,35,39,45,51,52,56,58,59,66,68) without differentiation. Performed at: =G - Lab[address] [id number] Oracle Manager: Denice Greco MD, Phone: [phone] Performed at: - [address] [id number] Oracle Manager: Denice Greco MD, Phone: [phone] IGP, APTIMA HPV, RFX 16/18,45Note.NOMS HealthcareComment on above:TESTS RESULT FLAG UNITS REF RANGE LAB DIAGNOSIS: 02 NEGATIVE FOR INTRAEPITHELIAL LESION OR MALIGNANCY. Specimen adequacy: 02 Satisfactory for evaluation. Endocervical and/or squamous metaplastic cells (endocervical component) are present. Performed by: 02 Gavin Orona, Sap Mobility Architect (ASC) . 02 Note: Note 02 The Pap smear is a screening test designed to aid in the detection of premalignant and malignant conditions of the uterine cervix. It is not a diagnostic procedure and should not be used as the sole means of detecting cervical cancer. Both false-positive and false-negative reports do occur. Test Methodology: Note 02 This liquid based ThinPrep(R) pap test was screened with the use of an image guided system. HPV Genotype Reflex Note 02 Criteria not met, HPV Genotype not performed. FLAG LEGEND: L-Low Normal,H-High Normal,LL-Alert Low,HH-Alert High <-Panic Low,>-Panic High,A-Abnormal,AA-Critical Abnormal Performed at: [address] [address] Denice Greco MD, BRUSH-SPATULA CERVIX ENDOCERVIX CLINISYNCNOLA HealthcarePOCT Influenza A/Influenza B/SARS-COV-2 Veritoron 43-16-2509Ijjyphie Poct Influenza A AntigenNegativeSelect [facility] External Poct Influenza B AntigenNegativeSelect Medical Specialty Hospital - AkronInterpretation and review of laboratory resultsNormalFormerly [facility], 1928–1983ARS-CoV-2 (COVID- 19) Ag IA.rapid Ql (Resp)PositiveTorrance State Hospital PAP ACOG PANEL 2: 30 to 65on 03-17-2022..NormalProtestant Hospital on above:Result Comment: Performed at: BAPerformed By: #### [id number] #### [facility] [address] [place] [address] Dr. Tenisha RojasAge Gdln ACOG Nowbuvb28-75UgxgfkEijMiddletown HospitalComment on above:Performed By: #### [id number] #### [facility] [address] [place] [address] Dr. Tenisha RojasDIAGNOSIS:CommentAdams County Regional Medical Center on above: Result Comment: NEGATIVE FOR INTRAEPITHELIAL LESION OR MALIGNANCY. THIS SPECIMEN WAS RESCREENED PART OF OUR COAL HANDLER PROGRAM. Performed at: BAPerformed By: #### [id number] #### [facility] [address] [place] [address] Dr. Tenisha RojasHPV AptimaNegativeNormalNegativeProtestant Hospital on above:Result Comment: This nucleic acid amplification test detects fourteen high-risk HPV types (16,18,31,33,35,39,45,51,52,56,58,59,66,68) without differentiation. Performed at: =GPerformed By: #### [id number] #### [facility] [address] [place] [address] Dr. Tenisha RojasMethodology:CommentAdams County Regional Medical Center on above: Result Comment: This liquid based ThinPrep(R) pap test was screened with the use of an image guided system. Performed at: WBPerformed By: #### [id number] #### [facility] [address] [place] [address] Dr. Tenisha RojasNote:CommentAdams County Regional Medical Center on above:Result Comment: The Pap smear is a screening test designed to aid in the detection of premalignant and malignant conditions of the uterine cervix. It is not a diagnostic procedure and should not be used as the sole means of detecting cervical cancer. Both false-positive and false-negative reports do occur. . Performed at: WBPerformed By: #### [id number] #### [facility] [address] [place] [address] Dr. Tenisha RojasPerformed by:CommentAdams County Regional Medical Center on above: Result Comment: Adama Mcmanus, Sap Mobility Architect (ASCP) Performed at: [facility] Hospitalformed By: #### [id number] #### [facility] [address] [address] [address] Tenisha RojasQC reviewed by:CommentAdams County Regional Medical Center on above:Result Comment: Valeriano Prescott, Sap Mobility Architect (ASCP) Performed at: [facility] Hospitalformed By: #### [id number] #### [facility] [address] [address] [address] Tenisha RojasSpecimen adequacy:CommentAdams County Regional Medical Center on above:Result Comment: Satisfactory for evaluation. Endocervical and/or squamous metaplastic cells (endocervical component) are present. Performed at: [facility] Hospitalformed By: #### [id number] #### [facility] [address] [place] [address] Dr. Tenisha Rojas Vital Signs Date TimeVital SignValuePerforming IzxjmpwztQbosvlrw88-83-6299 01:00-0400Body qwgdis003.4 [facility] Cequens FultonCellTran 10-07-2025 01:00-0400Body mass index (BMI) [Ratio]23.6 kg/m2[facility] Cequens FultonBrightBox Technologies 10-07-2025 01:00-0400Body surface area Derived from formula1.52 m2[facility] HospitalSciv[facility] Evince 10-07-2025 01:00-0400Body qpsmzo45.88 kgB[facility] Newswired Evince 10-07-2025 01:00-0400Diastolic blood ojpoltvn96 mm[Hg] [facility] [place] [employer] 10-07-2025 01:00-0400Systolic blood crsdpwop395 mm[Hg] Kortney [place] [facility] [employer]Tracker 09-29-2025 09:03-0400Body .4 cmKenbaldemar Etiennealfredavaughner LINK WIRE FABRIC MACHINE TENDER-ROD POINTER Work Phone: [facility] CenterGo[facility] Tech09-29-2025 09:03-0400Body mass index (BMI) [Ratio]24.02 kg/w2Bxojfq Schalfredavaughner LINK WIRE FABRIC MACHINE TENDER-ROD POINTER Work Phone: [facility] CenterGo[facility] Tech09-29-2025 09:03-0400Body ncuvghgykxs26.2 [degF]Rosmery Ling LINK WIRE FABRIC MACHINE TENDER-ROD POINTER Work Phone: [facility] CenterSynack Sdtuoa17-40-5618 09:03-0400Body akaizy90.79 kgKenbaldemar Hectorchter LINK WIRE FABRIC MACHINE TENDER-ROD POINTER Work Phone: [employer]09-29-2025 09:03-0400Diastolic blood fmbeazpg84 mm[Hg]Rosmeryra Hectorjennifer LINK WIRE FABRIC MACHINE TENDER-ROD POINTER Work Phone: [facility] CenterGo[facility]09-29-2025 09:03-0400Heart rate 87 /minRosmery Hectorchter LINK WIRE FABRIC MACHINE TENDER-ROD POINTER Work Phone: [facility] CenterSyn[facility] Oeqrzf67-74-4180 09:03-0400 Respiratory rate16 /minDavidbaldemar Hectorchter LINK WIRE FABRIC MACHINE TENDER-ROD POINTER Work Phone: [facility] CenterGo[facility]09-29-2025 09:03-7371KdZ7% (BldA) [Mass fraction]98 %Rosmery Hectorvaughnmichel LINK WIRE FABRIC MACHINE TENDER-ROD POINTER Work Phone: [employer]09-29-2025 09:03-0400Systolic blood kfszicqw983 mm[Hg]Rosmery Ling LINK WIRE FABRIC MACHINE TENDER-ROD POINTER Work Phone: [facility] [employer]Tracker Pzzwkx52-86-5070 13:03-0400Body mass index (BMI) [Ratio]24.02 kg/p0AfzrxqRosmery Ling LINK WIRE FABRIC MACHINE TENDER-ROD POINTER Work Phone: [facility]09-23-2025 13:03-0400Body xurkym54.79 kgRosmery Ling LINK WIRE FABRIC MACHINE TENDER-ROD POINTER Work Phone: [facility]09-23-2025 13:03-0400Diastolic blood idgcldmq32 mm[Hg]Rosmery Ling LINK WIRE FABRIC MACHINE TENDER-ROD POINTER Work Phone: [facility] LookTracker Dymqqq72-74-6907 13:03-0400Heart rate 95 /minRosmery Ling LINK WIRE FABRIC MACHINE TENDER-ROD POINTER Work Phone: [facility] LookTracker Jurjmh97-09-1645 13:03-0400 Respiratory rate16 /minRosmery Ling LINK WIRE FABRIC MACHINE TENDER-ROD POINTER Work Phone: [phone]-[facility]09-23-2025 13:03-9619VnM2% (BldA) [Mass fraction]98 %Rosmery Ling LINK WIRE FABRIC MACHINE TENDER-ROD POINTER Work Phone: [facility]09-23-2025 13:03-0400Systolic blood vcdwfqyq230 mm[Hg]Rosmery Ling LINK WIRE FABRIC MACHINE TENDER-ROD POINTER Work Phone: [facility] [employer] Xlwngw78-96-4883 10:12-0400Body mass index (BMI) [Ratio]23.83 kg/q8KwfxxiRosmery Ling LINK WIRE FABRIC MACHINE TENDER-ROD POINTER Work Phone: [facility] [employer] Bmddti67-54-7646 10:12-0400Body mtyxpctyxic45.6 [degF]Rosmery Ling LINK WIRE FABRIC MACHINE TENDER-ROD POINTER Work Phone: [facility]08-25-2025 10:12-0400Body dedyvy13.34 kgRomsery Ling LINK WIRE FABRIC MACHINE TENDER-ROD POINTER Work Phone: [phone] [place], [place] [address]308-25-2025 10:12-0400Diastolic blood oqnfmsjd76 mm[Hg]Rosmery Morganer LINK WIRE FABRIC MACHINE TENDER-ROD POINTER Work Phone: [facility]08-25-2025 10:12-0400Heart rate 78 /minKendra Schlachter LINK WIRE FABRIC MACHINE TENDER-ROD POINTER Work Phone: [facility]08-25-2025 10:12-0400 Respiratory rate16 /minKendra Schlachter LINK WIRE FABRIC MACHINE TENDER-ROD POINTER Work Phone: [phone]-[facility]08-25-2025 10:125486QmI4% (BldA) [Mass fraction]99 %Rosmery Hectorchter LINK WIRE FABRIC MACHINE TENDER-ROD POINTER Work Phone: [facility]08-25-2025 10:12-0400Systolic blood nrazijrc555 mm[Hg]Rosmery Morganer LINK WIRE FABRIC MACHINE TENDER-ROD POINTER Work Phone: [phone]-[facility]07-30-2025 14:24-0400Body mass index (BMI) [Ratio]23.63 kg/e3Zzqxdn Schlachter LINK WIRE FABRIC MACHINE TENDER-ROD POINTER Work Phone: [phone]-[facility]07-30-2025 14:24-0400Body egjkxl82.88 kgKena Schlachter LINK WIRE FABRIC MACHINE TENDER-ROD POINTER Work Phone: [facility]07-30-2025 14:24-0400Diastolic blood mm[Hg]Rosmery Morganer LINK WIRE FABRIC MACHINE TENDER-ROD POINTER Work Phone: [phone]-[facility]07-30-2025 14:24-0400Heart rate 102 /minKendra Schlachter LINK WIRE FABRIC MACHINE TENDER-ROD POINTER Work Phone: [phone]-[facility]07-30-2025 14:24-0400 Respiratory rate16 /minKendra Schlachter LINK WIRE FABRIC MACHINE TENDER-ROD POINTER Work Phone: [facility]07-30-2025 14:24-3619OcI0% (BldA) [Mass fraction]96 %Rosmery Schlachter LINK WIRE FABRIC MACHINE TENDER-ROD POINTER Work Phone: [facility] LookTracker Mycguj69-27-4930 14:24-0400Systolic blood lzefekds999 mm[Hg]Rosmery Ling LINK WIRE FABRIC MACHINE TENDER-ROD POINTER Work Phone: [facility]02-06-2025 10:51-0500Body mass index (BMI) [Ratio]24.31 kg/c3Xvggvodra Ling LINK WIRE FABRIC MACHINE TENDER-ROD POINTER Work Phone: [facility] [employer] Hmoxvc45-73-7452 10:51-0500Body jizfsicxfmn62.6 [degF]Rosmery Ling LINK WIRE FABRIC MACHINE TENDER-ROD POINTER Work Phone: [facility] [employer] Myvqch38-93-8730 10:51-0500Body .52 kgKendra Ling LINK WIRE FABRIC MACHINE TENDER-ROD POINTER Work Phone: [facility] [employer] Cfyuea59-30-5332 10:51-0500Diastolic blood tjaxmgdu42 mm[Hg]Rosmery Ling LINK WIRE FABRIC MACHINE TENDER-ROD POINTER Work Phone: [facility] [employer] Jonabo89-28-3238 10:51-0500Heart rate 101 /minRosmery Ling LINK WIRE FABRIC MACHINE TENDER-ROD POINTER Work Phone: [facility]02-06-2025 10:51-0500 Respiratory rate16 /minRosmery Ling LINK WIRE FABRIC MACHINE TENDER-ROD POINTER Work Phone: [facility] [employer] Jwmhuo58-10-5462 10:51-1147JmC6% (BldA) [Mass fraction]100 %Rosmery Ling LINK WIRE FABRIC MACHINE TENDER-ROD POINTER Work Phone: [facility]02-06-2025 10:51-0500Systolic blood hwwqsbyk927 mm[Hg]Rosmery Ling LINK WIRE FABRIC MACHINE TENDER-ROD POINTER Work Phone: [facility]10-21-2024 10:37-0400Body mass index (BMI) [Ratio]24.49 kg/y8Vzdir Roel DO Work Phone: [facility] CenterBrzgzgwmkp14-34-4925 10:37-0400Body oqplgs26.88 kgCorey Roel DO Work Phone: [facility] CenterTvnfizjfap25-72-5959 10:37-0400Diastolic blood ilmjdqia23 mm[Hg]Ricardo Roel DO Work Phone: [facility] CenterCdjzzqakfo71-67-3135 10:37-0400Systolic blood usutosgl031 mm[Hg]Ricardo Roel DO Work Phone: [facility] CenterJyzyygvcyf23-74-4832 09:19-0400Body syrsfc138.1 cmKendra Hectorchter LINK WIRE FABRIC MACHINE TENDER-ROD POINTER Work Phone: [facility] [employer] Yvvtlw30-35-6804 09:19-0400Body mass index (BMI) [Ratio]24.82 kg/i4Ykvxwz Schlachter LINK WIRE FABRIC MACHINE TENDER-ROD POINTER Work Phone: [phone] [employer] Qyxala43-62-1862 09:19-0400Body wcdeyu70.7 kgKena Lowelllachter LINK WIRE FABRIC MACHINE TENDER-ROD POINTER Work Phone: [phone]-[facility] [employer] Bpquhh53-99-5452 09:19-0400Diastolic blood paergzcd49 mm[Hg]Rosmery Lowellalfredachter LINK WIRE FABRIC MACHINE TENDER-ROD POINTER Work Phone: [phone]-[facility] [employer] Qzwppr81-04-2532 09:19-0400Heart rate 81 /minKendra Schlachter LINK WIRE FABRIC MACHINE TENDER-ROD POINTER Work Phone: [facility] [employer] Jkfqos44-85-7678 09:19-0400 Respiratory rate16 /minKendra Schlachter LINK WIRE FABRIC MACHINE TENDER-ROD POINTER Work Phone: [phone]-[facility] InstituteSelect [facility]09-26-2024 09:19-5828NjT8% (BldA) [Mass fraction]100 %Rosmery Lowellalfredachter LINK WIRE FABRIC MACHINE TENDER-ROD POINTER Work Phone: [phone]-[facility]09-26-2024 09:19-0400Systolic blood obfvxilj676 mm[Hg]Rosmery Hectorchter LINK WIRE FABRIC MACHINE TENDER-ROD POINTER Work Phone: [phone]-[facility]05-08-2024 14:52-0400Body mass index (BMI) [Ratio]24.43 kg/s5BeuwjrRosmery Ling LINK WIRE FABRIC MACHINE TENDER-ROD POINTER Work Phone: [facility]05-08-2024 14:52-0400Body mxtfqcqotic71.5 [degF]Rosmery Ling LINK WIRE FABRIC MACHINE TENDER-ROD POINTER Work Phone: [facility]05-08-2024 14:52-0400Body ucphfn42.79 kgKendra Ling LINK WIRE FABRIC MACHINE TENDER-ROD POINTER Work Phone: [facility] [employer] Xbetcp05-79-7676 14:52-0400Diastolic blood divtnixl02 mm[Hg]Rosmery Ling LINK WIRE FABRIC MACHINE TENDER-ROD POINTER Work Phone: [facility]05-08-2024 14:52-0400Heart rate 78 /minRosmery Ling LINK WIRE FABRIC MACHINE TENDER-ROD POINTER Work Phone: [facility]05-08-2024 14:52-0400 Respiratory rate16 /minRosmery Ling LINK WIRE FABRIC MACHINE TENDER-ROD POINTER Work Phone: [facility]05-08-2024 14:52-5531SlY7% (BldA) [Mass fraction]99 %Rosmery Ling LINK WIRE FABRIC MACHINE TENDER-ROD POINTER Work Phone: [facility]05-08-2024 14:52-0400Systolic blood xejgvrdc072 mm[Hg]Rosmery Lowellvaldez LINK WIRE FABRIC MACHINE TENDER-ROD POINTER Work Phone: [facility]03-20-2024 09:27-0400Body mass index (BMI) [Ratio]25.02 kg/p4RtvqvgRosmery Ling LINK WIRE FABRIC MACHINE TENDER-ROD POINTER Work Phone: [facility]03-20-2024 09:27-0400Body qincdx46.15 kgRosmery Ling LINK WIRE FABRIC MACHINE TENDER-ROD POINTER Work Phone: [facility] [employer] Ajhzgs85-70-2232 09:27-0400Diastolic blood kvmbyizc46 mm[Hg]Rosmery Ling LINK WIRE FABRIC MACHINE TENDER-ROD POINTER Work Phone: [facility] Bqfxgd23-93-3205 09:27-0400Heart rate 77 /minRosmery Morganer LINK WIRE FABRIC MACHINE TENDER-ROD POINTER Work Phone: [facility] [employer] Xpfcgp06-89-9049 09:27-0400 Respiratory rate16 /minVidyaa Tawnychter LINK WIRE FABRIC MACHINE TENDER-ROD POINTER Work Phone: [facility] [employer] Tiejco99-05-2032 09:27-8170TvZ6% (BldA) [Mass fraction]99 %Rosmery Ling LINK WIRE FABRIC MACHINE TENDER-ROD POINTER Work Phone: [facility] Ynsvjy24-23-5012 09:27-0400Systolic blood rwpqeefa199 mm[Hg]Rosmery Ling LINK WIRE FABRIC MACHINE TENDER-ROD POINTER Work Phone: [facility] Bwcicc60-94-8311 14:18-0500Body mass index (BMI) [Ratio]24.43 kg/x7QacctzRosmery Morganer LINK WIRE FABRIC MACHINE TENDER-ROD POINTER Work Phone: [facility] Gqwjtm19-46-8508 14:18-0500Body szvfkwcyrnr10.4 [degF]Rosmery Ling LINK WIRE FABRIC MACHINE TENDER-ROD POINTER Work Phone: [facility] Jkxrra42-42-6287 14:18-0500Body xfntta81.79 kgKendra Morganer LINK WIRE FABRIC MACHINE TENDER-ROD POINTER Work Phone: [facility] Glxrjn26-32-7213 14:18-0500Diastolic blood uusyvfcf12 mm[Hg]Rosmery Ling LINK WIRE FABRIC MACHINE TENDER-ROD POINTER Work Phone: [facility] Utodzy46-59-4784 14:18-0500Heart rate 102 /minVidyaa Lowelllachter LINK WIRE FABRIC MACHINE TENDER-ROD POINTER Work Phone: [facility] [employer] Jpvvmy45-52-5585 14:18-0500 Respiratory rate16 /minVidyaa Tawnychter LINK WIRE FABRIC MACHINE TENDER-ROD POINTER Work Phone: [facility]02-06-2024 14:182124BgF1% (BldA) [Mass fraction]98 %Rosmery Anuradha ZAFARN-ROD POINTER Work Phone: [facility] HospitalTytanium Ideas [facility] HospitalMquelm92-17-8858 14:18-0500Systolic blood ukenkirg531 mm[Hg]Rosmery Anuradha ZAFARN-ROD POINTER Work Phone: [facility] [employer] [facility] Encounters Encounter DateEncounter TypeCare ProviderFacilityStart: 04-01-2025 End: 88-58-4848Smhymk flowsheetCorey Roel DO Work Phone: [facility]YNStart: 04-01-2025 End: 05-87-5614Sjscwl flowsheetCorey Roel DO Work Phone: [facility] OBGYNStart: 24-30-9788Upuq [facility] Start: 03-04-2025 End: 29-66-5744Cflqolf encounter statusVidyabaldemar Anuradha LINK WIRE FABRIC MACHINE TENDER-ROD POINTER Work Phone: [facility] [employer] Work Phone: Start: 03-04-2025 End: 20-18-8476Ienltnok preventive med est patient 40-64yrsKnguyễn Ling APRN-ROD POINTER Work Phone: [facility] Family MedicineComment on above: Wellness examination (Primary Dx); Major depressive disorder, recurrent episode, mild; Generalized anxiety disorder; Posttraumatic stress disorderStart: 03-04-2025 End: 08-99-9116jfhidpjvktARQBCGVirtua [facility] Start: 04-09-7905Wmbbnzjmw for general adult medical examination without abnormal findingsVirtua Marl[facility] Ambulatory PPGStart: 02-26-2025 End: 37-23-7039Yqepmf outpatient visit 15 minutesRosmery Ling LINK WIRE FABRIC MACHINE TENDER-ROD POINTER Work Phone: [facility] Physicians Family MedicineComment on above: Acute sinusitis, recurrence not specified, unspecified location (Primary Dx) Start: 02-26-2025 End: 49-09-5973wuduvgnrpzDUJCPKRichmond [facility] Start: 01-28-2025 End: 53-29-1169tlesdvcwtnLUXGPLRichmond State Hospital [facility] Start: 01-28-2025 End: 94-95-9103Itxzzl outpatient visit 15 minutesKen Tawnychter LINK WIRE FABRIC MACHINE TENDER-ROD POINTER Work Phone: [facility] Physicians Family MedicineComment on above: Acute sinusitis, recurrence not specified, unspecified location (Primary Dx) Start: 01-19-2025 End: 99-98-7996AimjauVmfoit Lowelllachter LINK WIRE FABRIC MACHINE TENDER-ROD POINTER Work Phone: [facility] Physicians [facility] MedicineStart: 01-02-2025 End: 55-10-6749Pealwe outpatient visit 15 minutesKena Tawnychter LINK WIRE FABRIC MACHINE TENDER-ROD POINTER Work Phone: [facility] Physicians Family MedicineComment on above: Herpes zoster without complication (Primary Dx)Start: 01-02-2025 End: 02-62-6008fjarojskrlZRVICXRichmond [facility] Hospital [facility] Start: 09-13-2024 End: 89-34-9703qmbldmylhnMXQYXUCorewell Health Big Rapids Hospitaltart: 07-15-2024 End: 51-14-7369IwoutcLuxecc Lowelllachter LINK WIRE FABRIC MACHINE TENDER-ROD POINTER Work Phone: [facility] Physicians [facility] MedicineStart: 07-12-2024 End: 25-04-0190Wofzay outpatient visit 15 minutesKendra Schlachter LINK WIRE FABRIC MACHINE TENDER-ROD POINTER Work Phone: [facility] Physicians Family MedicineComment on above: Acute sinusitis, recurrence not specified, unspecified location (Primary Dx) Start: 07-12-2024 End: 27-71-9557uqbcoghoguMLRASBRichmond State Hospital [facility] Start: 03-26-2024 End: 98-04-7053Hdeltr flowsheetCorey Roel DO Work Phone: [facility] BCP OBStart: 03-26-2024 End: 82-85-7866Gvlnim flowsheetCorey Roel DO Work Phone: [facility] OBStart: 03-26-2024 End: 85-81-7564Lbrgszfjb Result EncounterCorey Roel DO Work Phone: [facility] External Department UnsolicitedStart: 03-26-2024 End: 62-22-1148Bzenvqo encounter procedureCorey Roel DO Work Phone: [facility] Work Phone: Start: 03-26-2024 End: 17-83-2517Zklhuzny preventive med est patient 18-39 yrsCorey Roel DO Work Phone: [facility] OBComment on above:Well woman exam with routine gynecological exam; Night sweats; Encounter for screening mammogram for malignant neoplasm of breastStart: 03-26-2024 End: 12-74-2985mjanmfrujpRRGJP FAZIONot AvailableStart: 03-01-2024 End: 35-45-0793Jlfbojw encounter statusRosmery Ling APRN-ROD POINTER Work Phone: [facility] Work Phone: Start: 03-01-2024 End: 61-25-9775Bsdgonit preventive med est patient 18-39 yrsKendra Ling LINK WIRE FABRIC MACHINE TENDER-ROD POINTER Work Phone: [facility] Family MedicineComment on above: Wellness examination (Primary Dx); Major depressive disorder, recurrent episode, mild (CMS-HCC); Generalized anxiety disorder; Posttraumatic stress disorderStart: 01-13-2024 End: 11-63-2074SjaxyiChhyyi Schlachter LINK WIRE FABRIC MACHINE TENDER-ROD POINTER Work Phone: [facility] Physicians Family MedicineStart: 10-12-2023 End: 48-99-6207Sgbica outpatient visit 15 minutesRosmery Ling LINK WIRE FABRIC MACHINE TENDER-ROD POINTER Work Phone: [facility] Physicians Family MedicineComment on above: Acute sinusitis, recurrence not specified, unspecified location (Primary Dx) Start: 08-24-2023 End: 42-69-4218Cgxmxt outpatient visit 15 minutesDaviddra Ling LINK WIRE FABRIC MACHINE TENDER-ROD POINTER Work Phone: [facility] Family MedicineComment on above: Major depressive disorder, recurrent episode, mild (CMS-HCC) (Primary Dx); Generalized anxiety disorder; Posttraumatic stress disorderStart: 71-44-3118DucnpxFkzyld Schlachter LINK WIRE FABRIC MACHINE TENDER-ROD POINTER Work Phone: [facility] Physicians Family MedicineStart: 07-12-2023 End: 45-97-4843Vhpgtr outpatient visit 15 minutesDaviddra Ling LINK WIRE FABRIC MACHINE TENDER-ROD POINTER Work Phone: [facility] Physicians Family MedicineComment on above: COVID-19 (Primary Dx); Major depressive disorder, recurrent episode, mild (CMS-HCC)Start: 03-10-2022 End: 80-11-3223dvaeqcvgxkBC RICARDO FAZIOFacility:F9Scmbv: 29-85-6028Huvzev outpatient new 30 minutesChase Sherice Other [employer]chDO OfficeStart: 53-18-2802Dadhsh outpatient visit 15 minutesChase Sherice Other [employer] OfficeStart: 40-98-7299Mpbmjj outpatient new 20 minutesChase Sherice Other KQ Office Procedures DateProcedureProcedure DetailPerforming ClinicianStart: 03-12-2025 End: 22-35-0007Ridykgmfgav screeningSaAthens-Limestone Hospital Start: 57-47-1458Qvwxm depression screening assessment Rosmery Ling LINK WIRE FABRIC MACHINE TENDER-ROD POINTER Work Phone: Start: 46-83-9969Iatsx depression screening assessment Rosmery Ling LINK WIRE FABRIC MACHINE TENDER-ROD POINTER Work Phone: Start: 57-93-8595Ehxst depression screening assessment Rosmery Ling LINK WIRE FABRIC MACHINE TENDER-ROD POINTER Work Phone: Start: 67-30-6927Xzfsf depression screening assessment Rosmery Ling LINK WIRE FABRIC MACHINE [facility] Work Phone: Start: 31-71-3024Fvito depression screening assessment Rosmery Ling LINK WIRE FABRIC MACHINE [facility] Work Phone: Start: 98-96-7165YAL,APTIMA HPV,AGE GDLNCorey Roel DO Work Phone: Start: 90-70-0332Ltvfukjofpm observation [Identifier] in Cervix by Cyto stainRosmery Ling [facility] Work Phone: Start: 49-04-5218ADYU INFLUENZA A/INFLUENZA B/SARS-COV-2 VERITORRosmery Ling [facility] Work Phone: Start: 19-52-0253Aysqc depression screening assessment Rosmery Ling [facility] Work Phone: Start: 31-53-7466Unpjus cur meds by ellen SmileyStart: 02-62-9250Htonwe of skinChase Sherice Plan of Treatment DateCare ActivityDetailAuthorStart: 92-24-1917Zraslouye for malignant neoplasm of cervixPap SmearProAdena [facility]ike [facility] Center SystemStart: 03-05-2026 End: 02-02-7522Gihpyiu encounter trwtvhkah41/30/2026 8:00 AM EDT Office Visit [facility] [address] [id number] Rosmery Ling [facility] [address] [place] [address] [facility] MedicineStart: 42-42-2659Ymywc BMI ScreeningAdult BMI ScreeningProAdena Pike Medical Center SystemStart: 23-65-8340Ylderktpaq ScreeningDepression ScreeningProBibb Medical Center Health SystemStart: 53-35-7850Hircpzm ScreeningTobacco ScreeningProAdena [facility] Medical [facility] SystemStart: 39-81-4618Wkpkr BMI ScreeningAdult BMI ScreeningMercy Health [facility]field [facility] SystemStart: 57-92-6594Cxfufmdzil ScreeningDepression ScreeningMercy Health [facility]field Hospital SystemStart: 59-52-4197Nsdugxh ScreeningTobacco ScreeningProUniversity Hospitals [facility] Medical Centerca Health SystemStart: 20-36-9601Axuvc BMI ScreeningAdult BMI ScreeningProAdena [facility] Medical [facility] SystemStart: 38-15-4928Noozlzzxjo ScreeningDepression ScreeningMercy Health [facility]field Hospital SystemStart: 67-83-5687Firopvx ScreeningTobacco ScreeningC[facility] Clinic [facility] Hospitalca Health SystemStart: 32-89-0789Rgamu BMI ScreeningAdult BMI ScreeningMercy Health [facility]field Hospital SystemStart: 38-28-9535Zvaeolqstr ScreeningDepression ScreeningMercy Health [facility]field Hospital SystemStart: 22-83-1514Nekbomo ScreeningTobacco ScreeningMercy Health [facility]field Hospital SystemStart: 04-02-2025 End: 93-00-3945Vudzbck encounter uqqmmxovn61/28/2025 8:30 AM EDT Office Visit [facility] [address] [id number] Rosmery Ling, LINK WIRE FABRIC MACHINE TENDER-ROD POINTER [address] [place] [address] [facility] MedicineStart: 04-01-2025 End: 66-42-0943Orjvdzl encounter procedureNOMS BCP OBComment on above:Arrived Start: 69-98-7843Voigobg evaluation of patient and reportInPerson; Nurse VisitIN [facility] Start: 25-32-6331Aiuazuw [Mass/volume] in Serum or PlasmaAsto [facility] CenterStart: 10-03-4576upplo panel, bloodUpmc Children'S Hospital [facility] CenterStart: 03-04-2025 End: 84-37-4652Nkadwbs encounter /29/2025 9:00 AM EDT Office Visit [facility] [address] [id number] Rosmery Ling, LINK WIRE FABRIC MACHINE TENDER-ROD POINTER [address] [place] [address] [facility] MedicineStart: 56-22-2341Gjlxd BMI ScreeningAdult BMI ScreeningProUniversity Hospitals Tripoint Medical Centerca Health SystemStart: 67-21-6387Fywpslx ScreeningTobacco ScreeningProUniversity Hospitals Tripoint Medical Centerca Health SystemStart: 67-16-5808Uoutvmdoi vaccinationInfluenza VaccineProUniversity Hospitals Tri[facility] Medical Centerca Health SystemStart: 17-57-1063Jxjfn BMI ScreeningAdult BMI ScreeningProUniversity Hospitals Tripoint Medical Centerca Health SystemStart: 32-55-0954Bifnbxk ScreeningTobacco ScreeningC[facility] Hospitalca Health SystemStart: 08-29-2024 End: 85-41-8875Dgnhzay encounter /26/2025 8:00 AM EDT Office Visit [facility] [address] [place], [id number] Rosmery Ling, [facility] [address] [place] [address] [facility] MedicineStart: 99-24-7292Nqehe BMI ScreeningAdult BMI ScreeningProUniversity Hospitals Tripoint Medical Centerca Health SystemStart: 82-04-8434Knuoyyw ScreeningTobacco ScreeningC[facility] Clinic [facility] Hospitalca Health SystemStart: 13-70-0689Qotqm BMI ScreeningAdult BMI ScreeningC[facility] Clinic [facility] Hospitalca Health SystemStart: 81-44-5289Sunffom ScreeningTobacco ScreeningC[facility] Clinic [facility] Hospitalca Health SystemStart: 03-26-2024 End: 10-32-6123ZL Breast - bilateral ScreeningBilateral screening mammogram Imaging Routine Well woman exam with routine gynecological exam Encounter for screening mammogram for malignant neoplasm of breast Expected: 03/26/2024 (Approximate), Expires: 05/26/2025[facility] Work Phone: comment on above:Expected: 03/26/2024 (Approximate), Expires: 05/26/2025Start: 03-26-2024 End: 70-78-0313Shsftex encounter rwxrniyum71/21/2024 10:00 AM EDT Office Visit [facility] [address] [place] [phone] Ricardo Sevilla, DO [address] [place] [address] ArrivedNOMS [facility] OBComment on above:ArrivedStart: 03-01-2024 End: 27-69-1801Rjnyeqw encounter nlifclgyx30/26/2024 9:30 AM EDT Office Visit [facility] [address], [id number] Rosmery Ling APRN-ROD POINTER [address] [place] [address] [facility] MedicineStart: 49-54-1234Vhoyyizix vaccinationInfluenza VaccineProAdena [facility]ike Medical Center SystemStart: 08-24-2023 End: 80-14-6537Axzmuqi encounter nvutdjisx56/20/2024 9:30 AM EDT Office Visit [facility] [address], [id number] Rosmery Ling LINK WIRE FABRIC MACHINE TENDER-ROD POINTER [address] [place] [address] [facility] MedicineStart: 61-27-5917Dpofswncut ScreeningDepression ScreeningProAdena [facility]ike Medical Center SystemStart: 04-31-2753Tvijfhcsd for malignant neoplasm of cervixPap SmearProAdena Pike Medical Center SystemStart: 98-19-9584JRsV,Tdap and Td Vaccines (1 - Tdap)DTaP,Tdap and Td Vaccines (1 - Tdap)[facility] SystemStart: 33-28-9287Alkym BMI Follow Up PlanAdult BMI Follow Up PlanSelect [facility] Immunizations Immunization DateImmunizationNotesCare IlhvitvoGwdlzyse86-10-8047xmgxosveb virus vaccine, unspecified formulationRosmery Ling LINK WIRE FABRIC MACHINE TENDER-ROD POINTER Work Phone: [facility]ronIloiiv90-42-6365airisbwux virus vaccine, unspecified formulationKendra Lowelllachter LINK WIRE FABRIC MACHINE TENDER-ROD POINTER Work Phone: [facility]ronQtiuth22-05-8530okzfguwam, injectable, quadrivalent, preservative freeKendra Schlachter LINK WIRE FABRIC MACHINE TENDER-ROD POINTER Work Phone: [facility] System Payers DatePayer CategoryPayerPolicy [id number] County General HospitalBS Member Subscriber Plan / Payer (Effective 2023-Present) Name: Maria Antonia Palmer Member ID: [id number] Relation to Subscriber: Spouse Name: Richard Palmer Subscriber ID: [id number] Date of : 1985 Address: [address] [place] [address] Payer ID: Not on file Type: Not on file Address: [place] [id number] [place] [id number] Indian Medical Center Managed Care - OtherANTHEM Member Subscriber Plan / Payer (Effective 2023-Present) Name: Maria Antonia Palmer Member ID: [id number] Relation to Subscriber: Spouse Name: Richard Palmer Subscriber ID: [id number] Date of : 1985 (Home) (Work) Address: [place] [address] Payer ID: [id number] (NAIC) Type: Not on filePhone: Address: [facility] [address] [place] [id number] Care HMO (unspecified)[place] [employer] Member Subscriber Plan / Payer (Effective 2021-Present) Name: Maria Antonia Palmer [facility] er ID: [id number] Relation to Subscriber: Self Name: Maria Antonia Palmer Payer ID: Not on file Type: [facility] Address: [place] [id number] 06-73-6827Wcbzxdm7.2.840.548688.1.13.424.2.7.3.131400.25155-99-6954Flxqlwr [id number] 2.16840.1.890938.3.57[id number] 2.840.1.640913.3.57[id number] 2.16840.1.325821.3.57[id number] 2.840.1.655543.3.57[id number] 2.840.1.910843.3.57[id number] 2.840.1.352597.3.57[id number] 2.16840.1.338180.3.57[id number] 2.16840.1.265233.3.57[id number] 2.16840.1.51444[id number] 2.16840.1.961719.3.441 Private Health [id number] 28[id number] .[id number] 840.1.377080.3.441 Social History DateTypeDetailFacilityStart: *ZinchAdena [facility] [employer]eng[employer]777 Start: 03-09-2023 End: 41-73-3582Zyfktlc smoking status NHISEx-smokerBRIGHAM CITY COMM[facility]ITY [facility] HealthcareStart: 1999 End: 89-26-1241Pwqngur of tobacco useCurrent smokerMercy Health Fairfield Hospital SystemStart: 1999 End: 97-25-3762Jncxhig of tobacco useCigarette SmokerMercy Health Fairfield Hospital System Start: 03-21-2023 End: 10-46-8779Asufrlwcy beverage intakeLifetime non-drinker (finding)[facility] HealthcareStart: 03-21-2023 End: 41-57-3466Vzhjuvn of Social functionMercy Health Fairfield Hospital SystemStart: 03-21-2023 End: 86-14-2957Aghuslz use panelMercy Health Fairfield Hospital SystemStart: 17-90-1398Hjnvfng Commentcaffeine: 1-2 cups per dayBRIGHAM CITY COMMUNITY [facility]OSPITAL HealthcareStart: 17-57-5873Erk assigned at birthNot on [facility] HealthcareStart: 11-09-2022 End: 62-57-5105Jwoitmp use and exposureSmokeless tobacco non-userMercy Health Fairfield Hospital SystemStart: 07-12-2024 End: 30-31-5952Ggynlrfuv beverage intakeCurrent non-drinker of alcohol (finding) [facility] Health SystemDo you belong to any clubs or organizations such as moravian groups, unions, fraternal or athletic groups, or school groups?Yes [facility] SystemAre you now , , , , never or living with a partner?MarriedSelect Medical Specialty Hospital - AkronHow often to you have a drink containing alcohol?NeverMercy Health Fairfield Hospital SystemStart: 08-18-2022 Average Number of DrinksNot on fileSelect Medical Specialty Hospital - AkronDo you feel stress - tense, restless, nervous, or anxious, or unable to sleep at night because your mind is troubled all the time - these days [OSQ]To some extentFormerly [facility], 1928–1983tart: 51-73-3273Mugmvomds94FgvAircxb Health SystemStart: 95-40-1725Qpi assigned at birthMissouri Baptist Hospital-Sullivantart: 12-38-6857FdaPfhdqw (finding)[facility]1983tart: 83-24-3751Jqfsub identityIdentifies as female gender (finding)[facility]1983tart: 72-53-2409Zeumjf orientationHeterosexual (finding)[facility] Medical Equipment Procedure CodeEquipment CodeEquipment Original TextEquipment IdentifierDates ProcedureImplant ([id number]) Clinical Notes 07-12-2023 to 03-04-2025 Note Date & [id number] History of Present illness Narrative* Rosmery Ling APRN-TARSHA - 03/04/2025 9:00 AM EDT Images from the original note were not included. [address] [facility] [id number] Subjective: Maria Antonia Palmer is a 39 y.o. female who presents for an Annual Wellness exam. Patient presents to the office for routine wellness. Has some increased anxiety- has been working oncoping mechanisms. Did talk about increasing zoloft by 25mg and seeing if that helps at all. Annual Exam Pertinent negatives include no abdominal pain, arthralgias, chest pain, congestion, coughing, fatigue, fever, joint swelling, nausea, neck pain, numbness, rash, sore throat, vomiting or weakness. The following portions of the patient's history were reviewed and updated as appropriate: medications, allergies, past medical history, past surgical history, social history, family history and immunization history Vitals: Vitals: 03/04/25 0903 BP: 112/68 BP Site: Right Arm BP Postition: Sitting BP CUFF SIZE: M (9-13 inches) Pulse: 87 Resp: 16 Temp: 36.2 C (97.2 F) TempSrc: Tympanic SpO2: 98% Weight: 55.8 kg (123 lb) Height: 152.4 cm (5') History: Patient Active Problem List Diagnosis Date Noted Posttraumatic stress disorder 01/12/2017 Generalized anxiety disorder 01/12/2017 Major depressive disorder, recurrent episode, mild 01/12/2017 Past Medical History: Diagnosis Date Anxiety Chronic headache Depression Heart murmur Hypertension Migraine Past Surgical History: Procedure Laterality Date SECTION, CLASSIC 06/2011 EXTERNAL EAR SURGERY Family History Problem Relation Age of Onset Anxiety disorder Mother Depression Mother Hypertension Mother Anxiety disorder Father Depression Father Alcohol abuse Father Drug abuse Father Heart disease Father Bipolar disorder Brother Anxiety disorder Brother Depression Brother Heart disease Paternal Grandfather Cervical cancer Maternal Aunt Ovarian cancer Maternal Aunt My mother is adopted. We dont know much about health history Breast cancer Neg Hx Social History Tobacco Use Smoking status: Former Current packs/day: 0.00 Average packs/day: 0.5 packs/day for 6.0 years (3.0 ttl pk-yrs) Types: Cigarettes Start date: 1999 Quit date: 2005 Years since quittin.7 Smokeless tobacco: Never Substance Use Topics Alcohol use: No Allergies: No Known Allergies Immunization History Administered Date(s) Administered Influenza, Injectable, quadrivalent (PF) 08/12/2020 Review of Systems: Review of Systems Constitutional: Negative for fatigue, fever and unexpected weight change. HENT: Negative for congestion, ear pain, sinus pressure, sinus pain and sore throat. Eyes: Negative for photophobia, pain, discharge and visual disturbance. Respiratory: Negative for cough, choking and shortness of breath. Cardiovascular: Negative for chest pain, palpitations and leg swelling. Gastrointestinal: Negative for abdominal pain, diarrhea, nausea and vomiting. Endocrine: Negative for polydipsia, polyphagia and polyuria. Genitourinary: Negative for difficulty urinating, frequency, hematuria and urgency. Musculoskeletal: Negative for arthralgias, gait problem, joint swelling and neck pain. Skin: Negative for pallor and rash. Neurological: Negative for dizziness, weakness, light-headedness and numbness. Psychiatric/Behavioral: Negative for sleep disturbance. The patient is nervous/anxious. Objective: BP 112/68 (BP Site: Right Arm, BP Postition: Sitting, BP CUFF SIZE: M (9-13 inches)) Pulse 87 Temp 36.2 C (97.2 F) (Tympanic) Resp 16 Ht 152.4 cm (5') Wt 55.8 kg (123 lb) SpO2 98% BMI 24.02 kg/m Physical Exam Constitutional: Appearance: She is well-developed. HENT: Head: Normocephalic and atraumatic. Right Ear: Tympanic membrane, ear canal and external ear normal. Left Ear: Tympanic membrane, ear canal and external ear normal. Eyes: Conjunctiva/sclera: Conjunctivae normal. Pupils: Pupils are equal, round, and reactive to light. Cardiovascular: Rate and Rhythm: Normal rate and regular rhythm. Heart sounds: Normal heart sounds. Pulmonary: Effort: Pulmonary effort is normal. Breath sounds: Normal breath sounds. Abdominal: General: Bowel sounds are normal. Palpations: Abdomen is soft. Musculoskeletal: Cervical back: Normal range of motion. Skin: General: Skin is warm and dry. Neurological: Mental Status: She is alert and oriented to person, place, and time. Psychiatric: Mood and Affect: Mood normal. Assessment/Plan: Maria Antonia was seen today for annual exam. Diagnoses and all orders for this visit: Wellness examination Major depressive disorder, recurrent episode, mild Generalized anxiety disorder Posttraumatic stress disorder Other orders - sertraline (ZOLOFT) 25 mg tablet; Take 1 tablet (25 mg total) by mouth in the morning. Plan Outpatient Medications Prior to Visit Medication Sig Dispense Refill sertraline (ZOLOFT) 50 mg tablet TAKE 1 TABLET BY MOUTH EVERY DAY 90 tablet 1 No facility-administered medications prior to visit. Follow Up: Gets labs done through 's insurance Mammogram done Increase zoloft to 75mg daily Follow up in 28 days Patient noted to have elevated BMI and the following intervention(s) were applied: encouragement toexercise. CHRISTINE Arguelles 03/04/25925 documented in [facility] History of Present illness Narrative* CHRISTINE Arguelles - 02/26/2025 1:00 PM EDT Images from the original note were not included. [id number] [facility] [id number] SUBJECTIVE: Patient ID: Maria Antonia Palmer is a 39 y.o. female. Patient presents to the office for complaints of sinus pressure, congestion, sore throat, post nasal drainage since last week. OTC medication is not helping. Sore Throat Associated symptoms include congestion and ear pain. Pertinent negatives include no abdominal pain,coughing, diarrhea, neck pain, shortness of breath or vomiting. Earache Associated symptoms include a sore throat. Pertinent negatives include no abdominal pain, coughing,diarrhea, neck pain, rash or vomiting. The following portions of the patient's history were reviewed and updated as appropriate: allergies, current medications, past family history, past medical history, past social history, past surgicalhistory and problem list. REVIEW OF SYSTEMS: Review of Systems Constitutional: Negative for fatigue, fever and unexpected weight change. HENT: Positive for congestion, ear pain, postnasal drip, sinus pressure, sinus pain and sore throat. Eyes: Negative for photophobia, pain, discharge and visual disturbance. Respiratory: Negative for cough and shortness of breath. Cardiovascular: Negative for chest pain, palpitations and leg swelling. Gastrointestinal: Negative for abdominal pain, diarrhea, nausea and vomiting. Endocrine: Negative for polydipsia, polyphagia and polyuria. Genitourinary: Negative for difficulty urinating, frequency, hematuria and urgency. Musculoskeletal: Negative for arthralgias, gait problem, joint swelling and neck pain. Skin: Negative for pallor and rash. Neurological: Negative for dizziness, weakness, light-headedness and numbness. Psychiatric/Behavioral: Negative for sleep disturbance. The patient is not nervous/anxious. PHYSICAL EXAMINATION: Vitals: 02/26/25 1303 BP: 120/62 Pulse: 95 Resp: 16 SpO2: 98% Weight: 55.8 kg (123 lb) Physical Exam Constitutional: Appearance: She is well-developed. HENT: Head: Normocephalic and atraumatic. Right Ear: External ear normal. Left Ear: External ear normal. Nose: Congestion present. Eyes: Conjunctiva/sclera: Conjunctivae normal. Pupils: Pupils are equal, round, and reactive to light. Cardiovascular: Rate and Rhythm: Normal rate and regular rhythm. Heart sounds: Normal heart sounds. Pulmonary: Effort: Pulmonary effort is normal. Breath sounds: Normal breath sounds. Musculoskeletal: Cervical back: Normal range of motion. Skin: General: Skin is warm and dry. Neurological: Mental Status: She is alert and oriented to person, place, and time. Psychiatric: Mood and Affect: Mood normal. ASSESSMENT/PLAN: Maria Antonia was seen today for sore throat and earache. Diagnoses and all orders for this visit: Acute sinusitis, recurrence not specified, unspecified location Other orders - azithromycin (ZITHROMAX) 250 mg tablet; Take 2 tablets the first day, then 1 tablet daily for 4 days. Follow-up: [facility] routine appointment CHRISTINE Arguelles 02/26/25 1314 documented in this encounterSelect [facility] [place]-25-[facility]25 History of Present illness Narrative* CHRISTINE Arguelles - 01/28/2025 10:00 AM EDT Images from the original note were not included. [address] [facility] [facility] [id number] SUBJECTIVE: Patient ID: Maria Antonia Palmer is a 39 y.o. female. Patient presents to the office for complaints of sinus pressure, sore throat, post nasal drip and ear pain. Son was diagnosed with sinusitis and ear infection. Sore Throat Associated symptoms include congestion, coughing and ear pain. Pertinent negatives include no abdominal pain, diarrhea, neck pain, shortness of breath or vomiting. Cough Associated symptoms include ear pain and a sore throat. Pertinent negatives include no chest pain, fever, rash or shortness of breath. Earache Associated symptoms include coughing and a sore throat. Pertinent negatives include no abdominal pain, diarrhea, neck pain, rash or vomiting. The following portions of the patient's history were reviewed and updated as appropriate: allergies, current medications, past family history, past medical history, past social history, past surgicalhistory and problem list. REVIEW OF SYSTEMS: Review of Systems Constitutional: Negative for fatigue, fever and unexpected weight change. HENT: Positive for congestion, ear pain, sinus pain and sore throat. Negative for sinus pressure. Eyes: Negative for photophobia, pain, discharge and visual disturbance. Respiratory: Positive for cough. Negative for shortness of breath. Cardiovascular: Negative for chest pain, palpitations and leg swelling. Gastrointestinal: Negative for abdominal pain, diarrhea, nausea and vomiting. Endocrine: Negative for polydipsia, polyphagia and polyuria. Genitourinary: Negative for difficulty urinating, frequency, hematuria and urgency. Musculoskeletal: Negative for arthralgias, gait problem, joint swelling and neck pain. Skin: Negative for pallor and rash. Neurological: Negative for dizziness, weakness, light-headedness and numbness. Psychiatric/Behavioral: Negative for sleep disturbance. The patient is not nervous/anxious. PHYSICAL EXAMINATION: Vitals: 01/28/25 1012 BP: 120/60 Pulse: 78 Resp: 16 Temp: 37 C (98.6 F) TempSrc: Tympanic SpO2: 99% Weight: 55.3 kg (122 lb) Physical Exam Constitutional: Appearance: She is well-developed. HENT: Head: Normocephalic and atraumatic. Right Ear: External ear normal. Left Ear: External ear normal. Nose: Congestion present. Eyes: Conjunctiva/sclera: Conjunctivae normal. Pupils: Pupils are equal, round, and reactive to light. Cardiovascular: Rate and Rhythm: Normal rate and regular rhythm. Heart sounds: Normal heart sounds. Pulmonary: Effort: Pulmonary effort is normal. Breath sounds: Normal breath sounds. Musculoskeletal: Cervical back: Normal range of motion. Skin: General: Skin is warm and dry. Neurological: Mental Status: She is alert and oriented to person, place, and time. Psychiatric: Mood and Affect: Mood normal. ASSESSMENT/PLAN: Maria Antonia was seen today for sore throat, cough and earache. Diagnoses and all orders for this visit: Acute sinusitis, recurrence not specified, unspecified location Other orders - azithromycin (ZITHROMAX) 250 mg tablet; Take 2 tablets the first day, then 1 tablet daily for 4 days. [facility] or as needed CHRISTINE Arguelles 01/28/25 1021 documented in this encounterSelect [facility] [place]07-30-2025 History of Present illness Narrative* CHRISTINE Arguelles - 01/02/2025 2:30 PM EDT Images from the original note were not included. [address] [place] [id number] SUBJECTIVE: Patient ID: Maria Antonia Palmer is a 39 y.o. female. Patient presents to the office for complaints of rash on left upper shoulder that she noticed yesterday. Not painful, vesicular rash. Is under a lot of stress right now. Rash Pertinent negatives include no congestion, cough, diarrhea, eye pain, fatigue, fever, shortness of breath, sore throat or vomiting. The following portions of the patient's history were reviewed and updated as appropriate: allergies, current medications, past family history, past medical history, past social history, past surgicalhistory and problem list. REVIEW OF SYSTEMS: Review of Systems Constitutional: Negative for fatigue, fever and unexpected weight change. HENT: Negative for congestion, ear pain, sinus pressure, sinus pain and sore throat. Eyes: Negative for photophobia, pain, discharge and visual disturbance. Respiratory: Negative for cough and shortness of breath. Cardiovascular: Negative for chest pain, palpitations and leg swelling. Gastrointestinal: Negative for abdominal pain, diarrhea, nausea and vomiting. Endocrine: Negative for polydipsia, polyphagia and polyuria. Genitourinary: Negative for difficulty urinating, frequency, hematuria and urgency. Musculoskeletal: Negative for arthralgias, gait problem, joint swelling and neck pain. Skin: Positive for rash. Negative for pallor. Neurological: Negative for dizziness, weakness, light-headedness and numbness. Psychiatric/Behavioral: Negative for sleep disturbance. The patient is not nervous/anxious. PHYSICAL EXAMINATION: Vitals: 01/02/25 1424 BP: 116/66 Pulse: 102 Resp: 16 SpO2: 96% Weight: 54.9 kg (121 lb) Physical Exam Constitutional: Appearance: She is well-developed. HENT: Head: Normocephalic and atraumatic. Right Ear: External ear normal. Left Ear: External ear normal. Eyes: Conjunctiva/sclera: Conjunctivae normal. Pupils: Pupils are equal, round, and reactive to light. Cardiovascular: Rate and Rhythm: Normal rate and regular rhythm. Heart sounds: Normal heart sounds. Pulmonary: Effort: Pulmonary effort is normal. Breath sounds: Normal breath sounds. Musculoskeletal: Cervical back: Normal range of motion. Skin: General: Skin is warm and dry. Findings: Rash present. Comments: Vesicular rash Neurological: Mental Status: She is alert and oriented to person, place, and time. ASSESSMENT/PLAN: Maria Antonia was seen today for rash. Diagnoses and all orders for this visit: Herpes zoster without complication Other orders - valACYclovir (VALTREX) 1000 mg tablet; Take 1 tablet (1,000 mg total) by mouth in the morning and1 tablet (1,000 mg total) before bedtime. Do all this for 7 days. Follow-up: Valtrex 1gm bid for 7 days If pain appears will let us know Keep routine appointment CHRISTINE Arguelles 01/02/25 8560 documented in this encounterSelect [facility] [place]02-06-2025 History of Present illness Narrative* CHRISTINE Arguelles - 07/12/2024 11:00 AM EST Images from the original note were not included. [address] [facility] [id number] SUBJECTIVE: Patient ID: Maria Antonia Palmer is a 39 y.o. female. Patient presents to the office with complaints of congestion, sore throat, ear pain since Tuesday. Son was ill with bronchitis. No fever, harsh cough. Sore Throat Associated symptoms include congestion and ear pain. Pertinent negatives include no abdominal pain,coughing, diarrhea, neck pain, shortness of breath or vomiting. Nasal Congestion Associated symptoms include congestion, ear pain and a sore throat. Pertinent negatives include no coughing, neck pain, shortness of breath or sinus pressure. Earache Associated symptoms include a sore throat. Pertinent negatives include no abdominal pain, coughing,diarrhea, neck pain, rash or vomiting. The following portions of the patient's history were reviewed and updated as appropriate: allergies, current medications, past family history, past medical history, past social history, past surgicalhistory and problem list. REVIEW OF SYSTEMS: Review of Systems Constitutional: Negative for fatigue, fever and unexpected weight change. HENT: Positive for congestion, ear pain and sore throat. Negative for sinus pressure and sinus pain. Eyes: Negative for photophobia, pain, discharge and visual disturbance. Respiratory: Negative for cough and shortness of breath. Cardiovascular: Negative for chest pain, palpitations and leg swelling. Gastrointestinal: Negative for abdominal pain, diarrhea, nausea and vomiting. Endocrine: Negative for polydipsia, polyphagia and polyuria. Genitourinary: Negative for difficulty urinating, frequency, hematuria and urgency. Musculoskeletal: Negative for arthralgias, gait problem, joint swelling and neck pain. Skin: Negative for pallor and rash. Neurological: Negative for dizziness, weakness, light-headedness and numbness. Psychiatric/Behavioral: Negative for sleep disturbance. The patient is not nervous/anxious. PHYSICAL EXAMINATION: Vitals: 07/12/24 1051 BP: 116/60 Pulse: 101 Resp: 16 Temp: 37 C (98.6 F) SpO2: 100% Weight: 55.5 kg (122 lb 6.4 oz) Physical Exam Constitutional: Appearance: She is well-developed. HENT: Head: Normocephalic and atraumatic. Right Ear: External ear normal. Left Ear: External ear normal. A middle ear effusion is present. Nose: Congestion present. Eyes: Conjunctiva/sclera: Conjunctivae normal. Pupils: Pupils are equal, round, and reactive to light. Cardiovascular: Rate and Rhythm: Normal rate and regular rhythm. Heart sounds: Normal heart sounds. Pulmonary: Effort: Pulmonary effort is normal. Breath sounds: Normal breath sounds. Musculoskeletal: Cervical back: Normal range of motion. Skin: General: Skin is warm and dry. Neurological: Mental Status: She is alert and oriented to person, place, and time. Psychiatric: Mood and Affect: Mood normal. ASSESSMENT/PLAN: Maria Antonia was seen today for sore throat, nasal congestion and earache. Diagnoses and all orders for this visit: Acute sinusitis, recurrence not specified, unspecified location Other orders - azithromycin (ZITHROMAX) 250 mg tablet; Take 1 tablet (250 mg total) by mouth in the morning for 5 days. Take 2 tablets the first day, then 1 tablet daily for 4 days.. Follow-up: [facility] Follow up with routine wellness or as needd Patient noted to have elevated BMI and the following intervention(s) were applied: encouragement toexercise. Rosmery Ling APRN-ROD POINTER 07/12/24 1114 documented in this encounterCleveland Clinic [facility] HospitalFuego Nation [id number] History of Present illness Narrative* Ena Nolandhalima, AISHA - 03/26/2024 10:00 AM EDT Reason for Appointment: Patient ID: Maria Antonia Palmer is a 38 y.o. female who presents for Well Women Visit Patient presents today for Annual Exam. MEDICATIONS Current Outpatient Medications Medication Instructions sertraline (Zoloft) 50 MG tablet 1 tablet, Oral, Daily ALLERGIES Allergies Allergen Reactions Apple (Diagnostic) Rash Bee Venom Rash PROBLEMS Active Ambulatory Problems Diagnosis Date Noted No Active Ambulatory Problems Resolved Ambulatory Problems Diagnosis Date Noted No Resolved Ambulatory Problems Past Medical History: Diagnosis Date Anxiety History of being hospitalized 12/24/2017 Hypertension in HISTORY PAST MEDICAL HISTORY SOCIAL HISTORY Past Medical History: Diagnosis Date Anxiety History of being hospitalized 12/24/2017 Overnight for obs/abdominal pain / food poisoning Hypertension in Social History Tobacco Use Smoking status: Former Types: Cigarettes Smokeless tobacco: Not on file Substance Use Topics Alcohol use: Never Comment: caffeine: 1-2 cups per day Drug use: Never FAMILY HISTORY Family History Problem Relation Name Age of Onset Other (Possible diabetes) Mother Heart attack Father Hypertension Brother Cancer Brother SURGICAL HISTORY Past Surgical History: Procedure Laterality Date SECTION, LOW TRANSVERSE MOLE REMOVAL TUMOR REMOVAL from ear REVIEW OF SYSTEMS Review of Systems: Review of Systems All other systems reviewed and are negative. OBJECTIVE Objective: Physical Exam Constitutional: Appearance: Normal appearance. She is well-developed. Genitourinary: Vulva normal. Breasts: Breasts are soft. Right: Normal. Left: Normal. Cardiovascular: Rate and Rhythm: Normal rate and regular rhythm. Pulmonary: Effort: Pulmonary effort is normal. Breath sounds: Normal breath sounds. Abdominal: General: Bowel sounds are normal. There is no distension. Palpations: Abdomen is soft. Tenderness: There is no abdominal tenderness. There is no guarding or rebound. Musculoskeletal: General: No swelling. Normal range of motion. Right lower leg: No edema. Left lower leg: No edema. Neurological: Mental Status: She is alert and oriented to person, place, and time. Skin: General: Skin is warm and dry. Psychiatric: Mood and Affect: Mood normal. Behavior: Behavior normal. Vitals and nursing note reviewed. Exam conducted with a chick grader present. Vitals: Estimated body mass index is 24.49 kg/m as calculated from the following: Height as of 03/21/23: 5'. Weight as of this encounter: 125 lb 6.4 oz. BP: 120/74 No LMP recorded. ASSESSMENT & PLAN ICD-10-CM 1. Well woman exam with routine gynecological exam Z01.419 2. Night sweats R61 Annual: Patient presents today for an annual exam. Patient states she is doing well and has no complaints. Pap was obtained without difficulty and patient given mammogram order to have scheduled/obtained. Follow Up: Patient is to return in one year for annual unless needed otherwise. Documented by Ena Jones LPN on behalf of: Ricardo Sevilla DO documented in this encounterSaint John's Regional Health [id number] History of Present illness Narrative* Rosmery Ling APRN-ROD POINTER - 03/01/2024 9:30 AM EDT Images from the original note were not included. [address] [facility] [id number] Subjective: Mari aAntonia Palmer is a 38 y.o. female who presents for an Annual Wellness exam. Patient presents to the office for routine wellness. Does have history of depression,anxiety, PTSD.She is doing well on zoloft. She is working through her travel anxiety and it does seem to be getting better. She also feels like she is having some armani-menopausal symptoms and had to menstrual cycles last month. 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 Had labs done through her 's work and they were reviewed. Annual Exam Pertinent negatives include no abdominal pain, arthralgias, chest pain, congestion, coughing, fatigue, fever, joint swelling, nausea, neck pain, numbness, rash, sore throat, vomiting or weakness. The following portions of the patient's history were reviewed and updated as appropriate: medications, allergies, past medical history, past surgical history, social history, family history and immunization history Vitals: Vitals: 03/01/24 0919 BP: 110/64 Pulse: 81 Resp: 16 SpO2: 100% Weight: 56.7 kg (125 lb) Height: 151.1 cm (4' 11.5 ) History: Patient Active Problem List Diagnosis Date Noted Posttraumatic stress disorder 01/12/2017 Generalized anxiety disorder 01/12/2017 Major depressive disorder, recurrent episode, mild ([facility]) 01/12/2017 Past Medical History: Diagnosis Date Anxiety Chronic headache Depression Heart murmur Hypertension Migraine Past Surgical History: Procedure Laterality Date SECTION, CLASSIC 06/2011 EXTERNAL EAR SURGERY Family History Problem Relation Age of Onset Anxiety disorder Mother Depression Mother Hypertension Mother Anxiety disorder Father Depression Father Alcohol abuse Father Drug abuse Father Heart disease Father Bipolar disorder Brother Anxiety disorder Brother Depression Brother Cervical cancer Maternal Aunt Heart disease Paternal Grandfather Social History Tobacco Use Smoking status: Former Current packs/day: 0.00 Average packs/day: 0.5 packs/day for 6.0 years (3.0 ttl pk-yrs) Types: Cigarettes Start date: 1999 Quit date: 2005 Years since quittin.7 Smokeless tobacco: Never Substance Use Topics Alcohol use: No Allergies: No Known Allergies Immunization History Administered Date(s) Administered Influenza, Injectable, quadrivalent (PF) 08/12/2020 Review of Systems: Review of Systems Constitutional: Negative for fatigue, fever and unexpected weight change. HENT: Negative for congestion, ear pain, sinus pressure, sinus pain and sore throat. Eyes: Negative for photophobia, pain, discharge and visual disturbance. Respiratory: Negative for cough and shortness of breath. Cardiovascular: Negative for chest pain, palpitations and leg swelling. Gastrointestinal: Negative for abdominal pain, diarrhea, nausea and vomiting. Endocrine: Negative for polydipsia, polyphagia and polyuria. Genitourinary: Negative for difficulty urinating, frequency, hematuria and urgency. Musculoskeletal: Negative for arthralgias, gait problem, joint swelling and neck pain. Skin: Negative for pallor and rash. Neurological: Negative for dizziness, weakness, light-headedness and numbness. Psychiatric/Behavioral: Negative for sleep disturbance. The patient is not nervous/anxious. Objective: BP 110/64 Pulse 81 Resp 16 Ht 151.1 cm (4' 11.5 ) Wt 56.7 kg (125 lb) SpO2 100% BMI 24.82 kg/m Physical Exam Constitutional: Appearance: She is well-developed. HENT: Head: Normocephalic and atraumatic. Right Ear: External ear normal. Left Ear: External ear normal. Eyes: Conjunctiva/sclera: Conjunctivae normal. Pupils: Pupils are equal, round, and reactive to light. Cardiovascular: Rate and Rhythm: Normal rate and regular rhythm. Heart sounds: Normal heart sounds. Pulmonary: Effort: Pulmonary effort is normal. Breath sounds: Normal breath sounds. Abdominal: General: Bowel sounds are normal. Palpations: Abdomen is soft. Musculoskeletal: General: Normal range of motion. Cervical back: Normal range of motion. Skin: General: Skin is warm and dry. Neurological: Mental Status: She is alert and oriented to person, place, and time. Psychiatric: Mood and Affect: Mood normal. Assessment/Plan: Maria Antonia was seen today for annual exam. Diagnoses and all orders for this visit: Wellness examination Major depressive disorder, recurrent episode, mild (CMS-HCC) Generalized anxiety disorder Posttraumatic stress disorder Plan Outpatient Medications Prior to Visit Medication Sig Dispense Refill sertraline (ZOLOFT) 50 mg tablet take 1 tablet by mouth every day 90 tablet 1 No facility-administered medications prior to visit. 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 [address] [facility] [address] SUBJECTIVE: Patient ID: Maria Antonia Palmer is a 38 y.o. female. Patient presents to the office with complaints of sinus congestion, sore throat and cough since last week. Has been taking OTC medication with no relief. Sinusitis Associated symptoms include congestion, coughing, sinus pressure and a sore throat. Pertinent negatives include no ear pain, neck pain or shortness of breath. Nasal Congestion Associated symptoms include congestion, coughing, sinus pressure and a sore throat. Pertinent negatives include no ear pain, neck pain or shortness of breath. The following portions of the patient's history were reviewed and updated as appropriate: allergies, current medications, past family history, past medical history, past social history, past surgicalhistory and problem list. REVIEW OF SYSTEMS: Review of Systems Constitutional: Negative for fatigue, fever and unexpected weight change. HENT: Positive for congestion, sinus pressure, sinus pain and sore throat. Negative for ear pain. Eyes: Negative for photophobia, pain, discharge and visual disturbance. Respiratory: Positive for cough. Negative for shortness of breath. Cardiovascular: Negative for chest pain, palpitations and leg swelling. Gastrointestinal: Negative for abdominal pain, diarrhea, nausea and vomiting. Endocrine: Negative for polydipsia, polyphagia and polyuria. Genitourinary: Negative for difficulty urinating, frequency, hematuria and urgency. Musculoskeletal: Negative for arthralgias, gait problem, joint swelling and neck pain. Skin: Negative for pallor and rash. Neurological: Negative for dizziness, weakness, light-headedness and numbness. Psychiatric/Behavioral: Negative for sleep disturbance. The patient is not nervous/anxious. PHYSICAL EXAMINATION: Vitals: 10/12/23 1452 BP: 110/60 Pulse: 78 Resp: 16 Temp: 37.5 C (99.5 F) SpO2: 99% Weight: 55.8 kg (123 lb) Physical Exam Constitutional: Appearance: She is well-developed. HENT: Head: Normocephalic and atraumatic. Right Ear: External ear normal. Left Ear: External ear normal. Nose: Congestion present. Right Sinus: Maxillary sinus tenderness present. Left Sinus: Maxillary sinus tenderness present. Eyes: Conjunctiva/sclera: Conjunctivae normal. Pupils: Pupils are equal, round, and reactive to light. Cardiovascular: Rate and Rhythm: Normal rate and regular rhythm. Heart sounds: Normal heart sounds. Pulmonary: Effort: Pulmonary effort is normal. Breath sounds: Normal breath sounds. Musculoskeletal: Cervical back: Normal range of motion. Skin: General: Skin is warm and dry. Neurological: Mental Status: She is alert and oriented to person, place, and time. Psychiatric: Mood and Affect: Mood normal. ASSESSMENT/PLAN: Maria Antonia was seen today for sinusitis and nasal congestion. Diagnoses and all orders for this visit: Acute sinusitis, recurrence not specified, unspecified location Other orders - azithromycin (ZITHROMAX) 250 mg tablet; Take 1 tablet (250 mg total) by mouth in the morning for 5 days. Take 2 tablets the first day, then 1 tablet daily for 4 days.. Follow-up: Zeferino Follow up with routine appointment or as needed CHRISTINE Arguelles 10/12/23 1519 documented in this [facility] [place] History of Present illness Narrative* CHRISTINE Arguelles - 08/24/2023 9:30 AM EDT Images from the original note were not included. [address] [place] [address] SUBJECTIVE: Patient ID: Maria Antonia Palmer is a 38 y.o. female. -Patient is a 38 year old female presenting for a checkup after having covid. Patient has a historyof anxiety and depression. Patient does relate to some episodes of anxiety attacks, but states theyare better. Patient states anxiety attacks occur in the car on long drives. Patient relates that itis under control and does not want to try anything new at this time. Patient relates to proper dietand exercise. Follow-up Associated symptoms include headaches. Pertinent negatives include no abdominal pain, arthralgias, chest pain, congestion, coughing, fatigue, fever, joint swelling, nausea, neck pain, numbness, rash,sore throat, vomiting or weakness. The following portions of the patient's history were reviewed and updated as appropriate: allergies, current medications, past family history, past medical history, past social history, past surgicalhistory and problem list. REVIEW OF SYSTEMS: Review of Systems Constitutional: Negative for fatigue, fever and unexpected weight change. HENT: Negative for congestion, ear pain, sinus pressure, sinus pain and sore throat. Eyes: Negative for photophobia, pain, discharge and visual disturbance. Respiratory: Negative for cough and shortness of breath. Cardiovascular: Negative for chest pain, palpitations and leg swelling. Gastrointestinal: Negative for abdominal pain, diarrhea, nausea and vomiting. Endocrine: Negative for polydipsia, polyphagia and polyuria. Genitourinary: Negative for difficulty urinating, frequency, hematuria and urgency. Musculoskeletal: Negative for arthralgias, gait problem, joint swelling and neck pain. Skin: Negative for pallor and rash. Neurological: Positive for headaches. Negative for dizziness, weakness, light- headedness and numbness. Chronic migraines Psychiatric/Behavioral: Negative for sleep disturbance. The patient is not nervous/anxious. PHYSICAL EXAMINATION: Vitals: 08/24/23 0927 BP: 112/62 Pulse: 77 Resp: 16 SpO2: 99% Weight: 57.2 kg (126 lb) Physical Exam Constitutional: Appearance: Normal appearance. She is well-developed and normal weight. HENT: Head: Normocephalic and atraumatic. Right Ear: Tympanic membrane, ear canal and external ear normal. Left Ear: Tympanic membrane, ear canal and external ear normal. Nose: Nose normal. Mouth/Throat: Mouth: Mucous membranes are moist. Pharynx: Oropharynx is clear. Eyes: Conjunctiva/sclera: Conjunctivae normal. Pupils: Pupils are equal, round, and reactive to light. Cardiovascular: Rate and Rhythm: Normal rate and regular rhythm. Pulses: Normal pulses. Heart sounds: Normal heart sounds. Pulmonary: Effort: Pulmonary effort is normal. Breath sounds: Normal breath sounds. Abdominal: General: Bowel sounds are normal. Palpations: Abdomen is soft. Musculoskeletal: General: Normal range of motion. Cervical back: Normal range of motion. Skin: General: Skin is warm and dry. Capillary Refill: Capillary refill takes less than 2 seconds. Neurological: General: No focal deficit present. Mental Status: She is alert and oriented to person, place, and time. Psychiatric: Mood and Affect: Mood normal. Behavior: Behavior normal. ASSESSMENT/PLAN: Maria Antonia was seen today for follow-up. Diagnoses and all orders for this visit: Major depressive disorder, recurrent episode, mild (CMS-HCC) Generalized anxiety disorder Posttraumatic stress disorder Follow-up: Patient does not wish to try change anything for anxiety at this time. Patient to return in 6 months for follow up. Discussed labs with patient. Discussed diet and exercise with the patient. CHRISTINE Arguelles 08/24/23 0954 documented in this encounterSelect [facility] [place]24 History of Present illness Narrative* Rosmery Ling, [employer] MACHINE TENDER-ROD POINTER - 07/12/2023 2:15 PM EST Images from the original note were not included. [address] [place] [address] SUBJECTIVE: Patient ID: Maria Antonia Palmer is a 38 y.o. female. Patient presents to the office with complaints of chills, congestion, sore throat. Symptoms startedon Tuesday. Worried about strep throat due to son having tonsillitis. Covid -19 test was positive. Patient does not qualify for paxlovid. Quarantine for five days. Sore Throat Associated symptoms include congestion and coughing. Pertinent negatives include no abdominal pain,diarrhea, ear pain, neck pain, shortness of breath or vomiting. Cough Associated symptoms include chills and a sore throat. Pertinent negatives include no chest pain, ear pain, fever, rash or shortness of breath. Nasal Congestion Associated symptoms include chills, congestion, coughing and a sore throat. Pertinent negatives include no ear pain, neck pain, shortness of breath or sinus pressure. Chills Associated symptoms include chills, congestion, coughing and a sore throat. Pertinent negatives include no abdominal pain, arthralgias, chest pain, fatigue, fever, joint swelling, nausea, neck pain, numbness, rash, vomiting or weakness. The following portions of the patient's history were reviewed and updated as appropriate: allergies, current medications, past family history, past medical history, past social history, past surgicalhistory and problem list. REVIEW OF SYSTEMS: Review of Systems Constitutional: Positive for chills. Negative for fatigue, fever and unexpected weight change. HENT: Positive for congestion and sore throat. Negative for ear pain, sinus pressure and sinus pain. Eyes: Negative for photophobia, pain, discharge and visual disturbance. Respiratory: Positive for cough. Negative for shortness of breath. Cardiovascular: Negative for chest pain, palpitations and leg swelling. Gastrointestinal: Negative for abdominal pain, diarrhea, nausea and vomiting. Endocrine: Negative for polydipsia, polyphagia and polyuria. Genitourinary: Negative for difficulty urinating, frequency, hematuria and urgency. Musculoskeletal: Negative for arthralgias, gait problem, joint swelling and neck pain. Skin: Negative for pallor and rash. Neurological: Negative for dizziness, weakness, light-headedness and numbness. Psychiatric/Behavioral: Negative for sleep disturbance. The patient is not nervous/anxious. PHYSICAL EXAMINATION: Vitals: 07/12/23 1418 BP: 110/62 Pulse: 102 Resp: 16 Temp: 36.9 C (98.4 F) SpO2: 98% Weight: 55.8 kg (123 lb) Physical Exam Constitutional: Appearance: She is well-developed. HENT: Head: Normocephalic and atraumatic. Right Ear: Tympanic membrane, ear canal and external ear normal. Left Ear: Tympanic membrane, ear canal and external ear normal. Nose: Congestion present. Eyes: Conjunctiva/sclera: Conjunctivae normal. Pupils: Pupils are equal, round, and reactive to light. Cardiovascular: Rate and Rhythm: Normal rate and regular rhythm. Heart sounds: Normal heart sounds. Pulmonary: Effort: Pulmonary effort is normal. Breath sounds: Normal breath sounds. Musculoskeletal: Cervical back: Normal range of motion. Skin: General: Skin is warm and dry. Neurological: Mental Status: She is alert and oriented to person, place, and time. Psychiatric: Mood and Affect: Mood normal. ASSESSMENT/PLAN: Maria Antonia was seen today for sore throat, cough, nasal congestion and chills. Diagnoses and all orders for this visit: COVID-19 - POCT Influenza A/Influenza B/SARS-COV-2 Veritor Major depressive disorder, recurrent episode, mild ([facility]-HCC) Follow-up: Covid -19 positive Quarantine for five days from onset of symptoms CHRISTINE Arguelles 07/12/23 1436 documented in this encounterProMedica [facility] SystemEvaluation note* Diagnosis Well woman exam with routine gynecological exam Routine gynecological examination Night sweats Generalized hyperhidrosis Encounter for screening mammogram for malignant neoplasm of breast [facility]* Diagnosis Acute sinusitis, recurrence not specified, unspecified location- Primary [facility]* Diagnosis Acute sinusitis, recurrence not specified, unspecified location- Primary documented in this encounter [facility] SystemEvaluation [facility]* Diagnosis COVID-19- Primary Major depressive disorder, recurrent episode, mild (CMS-HCC) Major depressive disorder, recurrent episode, mild documented in this encounter [facility] SystemEvaluation note* Diagnosis Major depressive disorder, recurrent episode, mild (CMS-HCC)- Primary Major depressive disorder, recurrent episode, mild Generalized anxiety disorder Posttraumatic stress disorder documented in this encounter [facility] note* Diagnosis Wellness examination- Primary Major depressive disorder, recurrent episode, mild (CMS-HCC) Major depressive disorder, recurrent episode, mild Generalized anxiety disorder Posttraumatic stress disorder documented in this encounter [facility] note* Diagnosis Herpes zoster without complication- Primary documented in this encounter [facility] SystemEvaluation note* Diagnosis Wellness examination- Primary Major depressive disorder, recurrent episode, mild Generalized anxiety disorder Posttraumatic stress disorder documented in this encounter [facility] SystemEvaluation note No assessment recorded. [place] [facility] History general Narrative - ReportedNo medical history recorded. Gynecological HistoryNo gynecological history recorded. Obstetrics History GPAL:G 0 P 0 0 0 0 [place] [employer] Instructions* Attachments The following attachments cannot be sent through Care Everywhere. * Sinusitis in adults (Stateless) documented in this encounterC[facility] L[facility] HospitalFuego Nation SystemInstructionsNot on file documented in this LimundoCleveland Clinic [facility] Lodi HospitalAccenx TechnologiesInstructions* Attachments The following attachments cannot be sent through Care Everywhere. * Sinusitis in adults (Stateless) documented in this [facility] HospitalFuego Nation SystemInstructions* Attachments The following attachments cannot be sent through Care Everywhere. * COVID-19 Discharge Instructions (Stateless) documented in this encounterYuanV SystemInstructionsNot on file documented in this Go800Instructions* Attachments The following attachments cannot be sent through Care Everywhere. * Anxiety Discharge Instructions, Adult (Stateless) documented in this [employer]erve SystemInstructionsNot on file documented in this LimundoC[facility] Clinic [facility] L[facility] HospitalAccenx TechnologiesInstructions* Attachments The following attachments cannot be sent through Care Everywhere. * Yearly Physical for Adults (Stateless) documented in this [facility]undoNorthwestern Medical CenterSynack SystemInstructions* Attachments The following attachments cannot be sent through Care Everywhere. * Shingles (Stateless) documented in this encounterProAdena [facility]ike [facility] SystemInstructions* Attachments The following attachments cannot be sent through Care Everywhere. * Generalized anxiety disorder (Stateless) [facility] Summary Purpose Family History No Family History Records FoundNo Family History Records FoundNo Family History Records FoundNo Family History Records FoundNothing Reported. Advance Directives No Advanced Directives Records FoundNo Advanced Directives Records FoundNo Advanced Directives Records FoundNo Advanced Directives Records Found Additional Source Comments INFORMATION SOURCE (unrecogn ized section and content) DATE CREATED AUTHOR 03/17/[address] [facility] DATE CREATED AUTHOR AUTHOR'S ORGANIZ ATION 03/27/2024 [facility] EPIC DATE CREATED AUTHOR AUTHOR'S ORGANIZ ATION 09/15/2024 [facility] DATE CREATED AUTHOR AUTHOR'S ORGANIZ ATION 03/09/2025 [facility] Reason for Visit (unrecogniz ed section and content) ReasonCommentsWell Women VisitReasonCommentsSore ThroatNasal CongestionEarache ReasonCommentsMed RefillReasonCommentsSinusitisNasal CongestionReasonComments Sore ThroatCoughNasal CongestionChillsReasonCommentsFollow-upReasonComments Annual ExamReasonCommentsRashReasonCommentsSore ThroatCoughEaracheReasonComments Sore ThroatEarache Care Teams (unrecognized sec tion and content) Team MemberRelationshipSpecialtyStart DateEnd Date Rosmery Ling APRN-ROD POINTER [address] [place] [address] PCP - [facility]08/17/18Team MemberRelationshipSpecialtyStart DateEnd Date Rosmery Ling, PAUL-TARSHA [address] [place] [address] PCP - [facility]08/17/18Team MemberRelationshipSpecialtyStart DateEnd Date Rosmery Ling, PAUL-ROD POINTER [address] [place] [address] PCP - [facility]08/17/18Te MemberRelationshipSpecialtyStart DateEnd Date Rosmery Ling APRN-ROD POINTER [address] [place] [address] [facility] - [facility]08/17/18Te MemberRelationshipSpecialtyStart DateEnd Date Rosmery Ling APRN-ROD POINTER [address] [place] [address] [facility]08/17/18Te MemberRelationshipSpecialtyStart DateEnd Date Rosmery Ling APRN-ROD POINTER [address] [place] [address] [facility]08/17/18Te MemberRelationshipSpecialtyStart DateEnd Date Rosmery Ling, PAUL-ROD POINTER [address] [place] [address] [facility] - [facility]08/17/18 FOR RECORDS PERTAINING TO PATIENTS WHO ARE OR HAVE BEEN ENROLLED IN A CHEMICAL DEPENDENCY/SUBSTANCEABUSE PROGRAM, SOME INFORMATION MAY BE OMITTED. This clinical summary was aggregated from multiple sources. Caution should be exercised in using it in the provision of clinical care. This summary normalizes information from multiple sources, and as a consequence, information in this document may materially change the coding, format and clinical context of patient data. In addition, data may be omitted in some cases. CLINICAL DECISIONS SHOULD BE BASED ON THE PRIMARY CLINICAL RECORDS. [facility] [employer] [facility]. provides no warranty or guarantee of the accuracy or completeness of information in this document.
[2025-04-04 13:08] LABS: Age Gdln ACOG Testing Note (.); IGP, Aptima HPV, rfx 16/18,45 Note (.)
== END 2025-04-01 12:08 | disposition home or self-care (01) ==
LOC: LAB 12:07
PROVIDERS: Visit Provider Physician Assistant
DX: Z01.419 Encounter for gynecological examination (general) (routine) without abnormal findings (principal)
CPT/HCPCS: 87624; 88175